=== PATIENT | female | born 1975 | race Caucasian/White ===

== ENCOUNTER 2024-06-11 10:45 | Outpatient (REF) | payer SELFPAY ==
[2024-06-11 14:25] LABS: Basophils Absolute Auto 0.1 10^3/uL (0.0-0.1); Basophils Percent Auto 0.9 % (0.2-2.0); Eosinophils Absolute Auto 0.1 10^3/uL (0.0-0.7); Eosinophils Percent Auto 1.9 % (0.9-7.0); Hematocrit 38.4 % (36.0-48.0); Hemoglobin 11.5 g/dL (12.0-16.0); Immature Granulocytes Abs Auto 0.02 10^3/uL (0.00-0.03); Immature Granulocytes Pct Auto 0.3 % (0.0-0.5); Lymphocytes Absolute Auto 1.6 10^3/uL (1.2-3.8); Lymphocytes Percent Auto 24.8 % (20.5-60.0); Mean Corpuscular HGB Conc 29.9 g/dL (29.9-35.2); Mean Corpuscular Hemoglobin 27.3 pg (26.7-34.0); Mean Corpuscular Volume 91.2 fL (81.0-99.0); Mean Platelet Volume 11.6 fL (9.5-13.5); Monocytes Absolute Auto 0.5 10^3/uL (0.3-0.8); Monocytes Percent Auto 8.1 % (1.7-12.0); Neutrophils Absolute Auto 4.1 10^3/uL (1.4-6.5); Platelet Count 378 10^3/uL (150-450); Red Blood Count 4.21 10^6/uL (4.20-5.40); Red Cell Distribution Width 13.9 % (11.0-15.0); White Blood Count 6.5 10^3/uL (4.0-11.0)
[2024-06-11 14:31] LABS: Alanine Aminotransferase 16 U/L (14-59); Albumin Globulin Ratio 0.8; Alkaline Phosphatase 61 U/L (46-116); Anion Gap 14.4; Aspartate Amino Transferase 22 U/L (15-37); BUN Creatinine Ratio 34.6; Bilirubin Total 0.1 mg/dL (0.2-1.0); C Reactive Protein <0.50 mg/dL (<=0.50); Calcium 6.4 mg/dL (8.5-10.1); Carbon Dioxide 20.3 mmol/L (21.0-32.0); Chloride 116 mmol/L (98-107); Estimated GFR (African America >60 (>=60); Estimated GFR (Non-African Ame >60 (>=60); Globulin 2.6 g/dL; Glucose 54 mg/dL (74-106); Sodium 148 mmol/L (136-145); Total Protein 4.6 g/dL (6.4-8.2)
[2024-06-11 15:37] LABS: Potassium 2.7 mmol/L (3.5-5.1)
[2024-06-11 16:02] LABS: Erythrocyte Sedimentation Rate 102 mm/hr (<=30)
== END 2024-06-11 10:46 | disposition home or self-care (01) ==
LOC: LAB 10:45
PROVIDERS: PCP Internal Medicine
DX: T84.52XA Infection and inflammatory reaction due to internal left hip prosthesis, initial encounter (principal); Z79.899 Other long term (current) drug therapy
CPT/HCPCS: 36415; 80053; 85025; 85652; 86140

== ENCOUNTER 2024-06-13 15:14 | Outpatient (REF) | payer SELFPAY ==
[2024-06-13 16:05] LABS: Potassium 4.5 mmol/L (3.5-5.1)
== END 2024-06-13 15:15 | disposition home or self-care (01) ==
LOC: LAB 15:14
PROVIDERS: PCP Internal Medicine
DX: E87.6 Hypokalemia (principal)
CPT/HCPCS: 36415; 84132

== ENCOUNTER 2024-06-18 11:34 | Outpatient (REF) | payer SELFPAY ==
[2024-06-18 12:07] LABS: Basophils Percent Auto 0.9 % (0.2-2.0); Eosinophils Absolute Auto 0.1 10^3/uL (0.0-0.7); Eosinophils Percent Auto 2.1 % (0.9-7.0); Hematocrit 27.4 % (36.0-48.0); Hemoglobin 8.3 g/dL (12.0-16.0); Lymphocytes Absolute Auto 0.8 10^3/uL (1.2-3.8); Lymphocytes Percent Auto 22.9 % (20.5-60.0); Mean Corpuscular HGB Conc 30.3 g/dL (29.9-35.2); Mean Corpuscular Hemoglobin 27.8 pg (26.7-34.0); Mean Corpuscular Volume 91.6 fL (81.0-99.0); Mean Platelet Volume 11.1 fL (9.5-13.5); Monocytes Absolute Auto 0.4 10^3/uL (0.3-0.8); Neutrophils Absolute Auto 2.1 10^3/uL (1.4-6.5); Neutrophils Percent Auto 63.1 % (43.0-75.0); Platelet Count 251 10^3/uL (150-450); Red Blood Count 2.99 10^6/uL (4.20-5.40); Red Cell Distribution Width 13.6 % (11.0-15.0); White Blood Count 3.3 10^3/uL (4.0-11.0)
[2024-06-18 12:36] LABS: Alanine Aminotransferase 28 U/L (14-59); Albumin Globulin Ratio 0.8; Albumin Level 3.1 g/dL (3.4-5.0); Alkaline Phosphatase 95 U/L (46-116); Aspartate Amino Transferase 28 U/L (15-37); BUN Creatinine Ratio 22.4; Bilirubin Total 0.2 mg/dL (0.2-1.0); C Reactive Protein 0.85 mg/dL (<=0.50); Calcium 9.5 mg/dL (8.5-10.1); Chloride 103 mmol/L (98-107); Estimated GFR (African America >60 (>=60); Estimated GFR (Non-African Ame >60 (>=60); Glucose 94 mg/dL (74-106); Sodium 138 mmol/L (136-145); Total Protein 7.1 g/dL (6.4-8.2)
[2024-06-18 12:56] LABS: Erythrocyte Sedimentation Rate 10 mm/hr (<=30)
== END 2024-06-18 11:35 | disposition home or self-care (01) ==
LOC: LAB 11:34
PROVIDERS: PCP Internal Medicine
DX: T84.52XA Infection and inflammatory reaction due to internal left hip prosthesis, initial encounter (principal); Z79.2 Long term (current) use of antibiotics
CPT/HCPCS: 36415; 80053; 85025; 85652; 86140

== ENCOUNTER 2024-07-02 11:52 | Outpatient (REF) | payer OTHER, SELFPAY ==
[2024-07-02 12:09] LABS: Basophils Absolute Auto 0.1 10^3/uL (0.0-0.1); Basophils Percent Auto 1.2 % (0.2-2.0); Eosinophils Absolute Auto 0.1 10^3/uL (0.0-0.7); Eosinophils Percent Auto 2.2 % (0.9-7.0); Hematocrit 39.5 % (36.0-48.0); Hemoglobin 12.2 g/dL (12.0-16.0); Immature Granulocytes Abs Auto 0.01 10^3/uL (0.00-0.03); Immature Granulocytes Pct Auto 0.2 % (0.0-0.5); Lymphocytes Absolute Auto 1.3 10^3/uL (1.2-3.8); Lymphocytes Percent Auto 21.9 % (20.5-60.0); Mean Corpuscular HGB Conc 30.9 g/dL (29.9-35.2); Mean Corpuscular Hemoglobin 27.2 pg (26.7-34.0); Mean Corpuscular Volume 88.2 fL (81.0-99.0); Monocytes Absolute Auto 0.4 10^3/uL (0.3-0.8); Monocytes Percent Auto 7.1 % (1.7-12.0); Neutrophils Absolute Auto 3.9 10^3/uL (1.4-6.5); Neutrophils Percent Auto 67.4 % (43.0-75.0); Platelet Count 387 10^3/uL (150-450); Red Blood Count 4.48 10^6/uL (4.20-5.40); Red Cell Distribution Width 13.4 % (11.0-15.0); White Blood Count 5.8 10^3/uL (4.0-11.0)
--- OUTSIDE RECORDS SUMMARY | 2024-07-02 12:10 | XMS_ITS | CCD ---
Author Organization [facility] CliniSynd Care Team Providers Care Motor Winder Name Role Phone KODAK, DR RAMOS Admitting Unavailable HIESTAND, DR TREE Aguilar Primary Care Unavailable KODAK, DR RAMOS Attending Unavailable KODAK, DR RAMOS Admitting Unavailable HIESTAND, DR TREE Aguilar Primary Care Unavailable KODAK, DR RAMOS Attending Unavailable KODAK, DR RAMOS Consulting Unavailable DERRICK CANNON Consulting Unavailable BOUCHRA GRACE Consulting Unavailable KODAK, DR RAMOS Admitting Unavailable KODAK, DR RAMOS Attending Unavailable KODAK, DR RAMOS Consulting Unavailable Paul Mcgregor Consulting Unavailable KODAK, DR RAMOS Admitting Unavailable HIESTAND, DR TREE Aguilar Primary Care Unavailable KODAK, DR RAMOS Attending Unavailable KODAK, DR RAMOS Consulting Unavailable Chapis Saldana Unavailable Tay Tucker Unavailable NON STAFF Primary Care Unavailable Tay Tucker Attending Unavailable Tay Tucker Admitting Unavailable Tree Jaime MD Primary Care Provider Tree Jaime MD Primary Care Provider MICHAELA MA Attending Unavailable TREE JAIME Referring Unavailable TREE JAIME Attending Unavailable TREE JAIME Referring Unavailable TREE JAIME Primary Care Unavailable TREE JAIME Attending Unavailable TREE JAIME Referring Unavailable TREE JAIME Primary Care Unavailable TREE JAIME Attending Unavailable TREE JAIME Referring Unavailable TREE JAIME Primary Care Unavailable ANGUS BROOKE Referring Unavailable YONI VILLELA Referring Unavailable TREE JAIME Primary Care Unavailable YONI VILLELA Referring Unavailable TREE JAIME Primary Care Unavailable TREE JAIME Attending Unavailable TREE JAIME Referring Unavailable TREE JAIME J Primary Care Unavailable YONI VILLELA Referring Unavailable OSWALDOMIRA, TREE Aguilar Primary Care Unavailable ANGUS BROOKE Referring Unavailab le TREE JAIME Primary Care Unavailable YONI VILLELA Referring Unavailable OSWALDOMIRA, TREE Aguilar Primary Care Unavailable OSWALDOTREE MEYERS Attending Unavailable ADDISON, TREE Aguilar Referring Unavailable PASESARMIRA, TREE Aguilar Primary Care Unavailable Unavailable, Physician Primary Care Unavailab Angus Cohen MD Attending Unavailable Unavailable, Physician Primary Care Unavailab Angus Cohen MD Admitting Unavailable Angus Brooke MD Attending Unavailable Angus Brooke MD Attending Unavailable Unavailable, Physician Primary Care UnavailAngus Felix MD Attending Unavailable Unavailable, Physician Primary Care UnavailAngus Felix MD Attending Unavailable Unavailable, Physician Primary Care Unavailab le Unavailable, Physician Primary Care Unavailab Angus Cohen MD Attending Unavailable Medications Current Medications Medication Drug Class(es) Dates Sig (Normalized) Sig (Original) 0.5 ML tirzepatide 5 MG/ML Auto-Injector [Mounjaro] (1 source) Start: 08-09-2022 Mounjaro 2.5 MG/0.5ML as directed Subcutaneous weekly for 28 days Jul, Active acetaminophen 325 mg / HYDROcodone bitartrate 5 mg oral tablet (2 sources) Opioid Agonist Start: 12-13-2023 take 1 tablet by mouth every eight hours for pain HYDROcodone-aceta minophen (NORCO) 5-325 mg per tablet take 1 tablet by mouth every 8 hours for 7 days if needed for pain 0 12/13/2023 Active calcium carbonate 500 mg oral tablet (1 source) calcium carbonat e (Os-Carlos) 1250 (500 Ca) MG tablet Take by mouth Daily 0 Active hydroCHLOROthiazide 12.5 mg / losartan potassium 100 mg oral tablet (2 sources) Thiazide Diuretic, Angiotensin 2 Receptor Nereida take 1 tablet by mouth every twenty-four hours Losartan Potassium-HCTZ 100-12.5 MG 1 tablet Orally Once a day Active labetalol hydrochloride 100 mg oral tablet (8 sources) beta-Adrenergic Nereida Start: 08-09-2023 take 1 tablet by mouth once daily in the morning labetaloL (NORMODYNE) 100 mg tablet Indications: Primary hypertension take 1 tablet by mouth every morning and 1 tablet BEFORE BEDTIME 180 tablet 3 08/09/2023 Active Start: 08-09-2023 labetalol (Nor modyne) 100 MG tablet 2 (two) times a day 0 08/09/2023 Active Multiple Vitamin (multivitamin) tablet (1 source) take 1 tablet by mouth in the morning Multiple Vitamin (multivitamin) tablet Take 1 tablet by mouth in the morning. 0 Active omeprazole 20 mg delayed release oral capsule (1 source) Proton Pump Inhibitor Start: 09-14-20 23 omeprazole (PriLOSEC) [address] capsule 0.25 mg, 0.5 mg dose 1.5 ml semaglutide 1.34 mg/ml pen injector (4 sources) Start: 09-02-20 22 Ozempic (0.25 or 0.5 MG/DOSE) 2 MG/1.5ML 0.25 mg for 4 weeks and then increase to 0.5 mg Subcutaneous Weekly for 28 days Aug, Active Ozempic (0.25 or 0.5 MG/DOSE) 2 MG/1.5ML 0.5 mg Subcutaneous Weekly for 28 days Active tiZANidine 4 mg oral tablet (2 sources) Central alpha-2 Adrenergic Agonist Start: 11-24-2023 take 1 tablet by mouth every eight hours tiZANidine (ZANAFLEX) 4 mg tablet take 1 tablet by mouth every 8 hours 0 11/24/2023 Active Wegovy (1 source) Wegovy Active Completed/Discontinued Medications Medication Drug Class(es) Dates Sig (Normalized) Sig (Original) cyclobenzaprine hydrochloride 5 mg oral tablet (5 sources) Muscle Relaxant Start: 10-21-2023 End: 11-02-2023 take 1 tablet by mouth every eight hours as needed for muscle spasms cyclobenzaprine (FLEXERIL) 5 mg tablet Indications: Sciatica of left side Take 1 tablet (5 mg total) by mouth every 8 (eight) hours as needed for muscle spasms. 15 tablet 0 10/21/2023 11/02/2023 Discontinued Start: 04-05-2023 End: 10-21-2023 take 1 tablet by mouth every eight hours as needed for muscle spasms cyclobenzaprine (FLEXERIL) 10 mg tablet Indications: Strain of neck muscle, initial encounter Take 1 tablet (10 mg total) by mouth every 8 (eight) hours as needed for muscle spasms. 15 tablet 0 04/05/2023 10/21/2023 Discontinued gabapentin 100 mg oral capsule (4 sources) Anti-epileptic Agent Start: 10-21-2023 End: 11-02-2023 take 1 capsule by mouth three times daily gabapentin (NEURONTIN) 100 mg capsule Indications: Sciatica of left side Take 1 capsule (100 mg total) by mouth 3 (three) times a day. 21 capsule 0 10/21/2023 11/02/2023 Discontinued losartan potassium 100 mg oral tablet (2 sources) Angiotensin 2 Receptor Nereida Start: 08-09-2023 End: 10-21-2023 take 1 tablet by mouth once daily in the morning losartan (COZAAR) 100 mg tablet Indications: Primary hypertension take 1 tablet by mouth every morning 90 tablet 3 08/09/2023 10/21/2023 Discontinued (Therapy completed) Losartan Potassi um Active Naproxen (6 sources) Nonsteroidal Anti-inflammatory Drug End: 10-21-2023 naproxen sodium (ALEVE ORAL) Take by mouth. 0 10/21/2023 Discontinued (Therapy completed) take 4 tablets by mo [facility] every twenty-four hours Aleve 220 MG 4 tablets Orally daily Active traMADol hydrochloride 50 mg oral tablet (3 sources) Opioid Agonist Start: 11-02-2023 End: 12-19-2023 take 1 tablet by mouth every six hours as needed for pain traMADoL (ULTRAM) 50 mg tablet Indications: Primary osteoarthritis of left hip Take 1 tablet (50 mg total) by mouth every 6 (six) hours as needed for pain. 20 tablet 0 11/02/2023 12/19/2023 Discontinued (Therapy completed) Problems Active Problems Problem Classification Problem Date Documented Da te Episodic/Chronic Complication of device; implant or graft (3 sources) Infection and inflammatory reaction due to internal left hip prosthesis, initial encounter; Translations: [Infection and inflammatory reaction due to internal left hip prosthesis, initial encounter] Onset: Episodic Disorders of lipid metabolism (7 sources) Hypercholesterolemia; Translations: [Pure hypercholesterolemia, unspecified] Chronic Esophageal disorders (7 sources) Gastroesophageal reflux disease; Translations: [Gastro-esophageal reflux disease without esophagitis] Chronic Essential hypertension (14 sources) Hypertensive disorder; Translations: [Essential (primary) hypertension] Onset: 2 Chronic Menstrual disorders (6 sources) Excessive and frequent menstruation with regular cycle; Translations: [Dysmenorrhea, unspecified] Onset: 1 Chronic Osteoarthritis (3 sources) Osteoarthritis of left hip joint; Translations: [Unilateral primary osteoarthritis, left hip] 10-31-2023 Chronic Other female genital disorders (4 sources) Abnormal uterine and vaginal bleeding, unspecified; Translations: [ABNORMAL UTERINE VAGINAL BLEED UNS] Onset: 1 Chronic Other female genital disorders (1 source) Polyp of corpus uteri; Translations: [POLYP OF CORPUS UTERI] Onset: 1 Episodic Other gastrointestinal disorders (1 source) History of bariatric surgical procedure; Translations: [Bariatric surgery status] 11-01-2023 Episodic Other lower respiratory disease (2 sources) Snoring Episodic Other nutritional; endocrine; and metabolic disorders (1 source) Morbid (severe) obesity due to excess calories; Translations: [MORBID SEVERE OBES D/T EXCESS CARLOS] Onset: 1 Chronic Other nutritional; endocrine; and metabolic disorders (2 sources) Body mass index (BMI) 50.0-59.9, adult; Translations: [BODY MASS INDEX BMI 50.0-59.9 ADULT] Onset: 1 Chronic Other nutritional; endocrine; and metabolic disorders (2 sources) Obesity; Translations: [Obesity, unspecified] Chronic Other nutritional; endocrine; and metabolic disorders (4 sources) Body mass index 40+ - severely obese; Translations: [Body mass index (BMI) 50.0-59.9, adult] Chronic Other nutritional; endocrine; and metabolic disorders (2 sources) Morbid obesity; Translations: [Body mass index (BMI) 60.0-69.9, adult] Chronic Other nutritional; endocrine; and metabolic disorders (1 source) Obesity, unspecified Chronic Other nutritional; endocrine; and metabolic disorders (1 source) Body mass index (BMI) 60.0-69.9, adult Chronic Other nutritional; endocrine; and metabolic disorders (7 sources) Severe obesity; Translations: [Morbid (severe) obesity due to excess calories] Onset: 2 08-17-2022 Chronic Other nutritional; endocrine; and metabolic disorders (1 source) Abnormal weight gain Episodic Unclassified (1 source) CONTACT W/AND (SUSP) EXPOS COVID-19; Translations: [CONTACT W/AND (SUSP) EXPOS COVID-19] Onset: 1 Unclassified (1 source) Dietary counseling and surveillance; Translations: [Dietary counseling and surveillance] Onset: 3 Unclassified (1 source) pre-op Onset: 4 Past or Other Problems Problem Classification Problem Date Documented Da te Episodic/Chronic Mood disorders (7 sources) Mood disorders Onset: 05-21-2021 05-21-2021 Other connective tissue disease (1 source) Pain in lower limb Onset: 10-21-2023 Episodic Other non-traumatic joint disorders (4 sources) Hip pain; Translations: [Pain in left hip] Onset: 12-19-2023 10-27-2023 Episodic Other non-traumatic joint disorders (1 source) Pain in left hip; Translations: [Pain in left hip] Onset: 10-27-2023 Episodic Spondylosis; intervertebral disc disorders; other back problems (4 sources) Sciatica; Translations: [Sciatica, left side] Onset: 10-21-2023 10-21-2023 Episodic Results Test Name Value Interpretation Reference Range Tyra de la fuente Infectious Disease Office/ jacki Noteon 06-28-2024 Infectious Disease Office/Clinic Note Assessment/Plan 1. Left hip prosthetic joint infection Sed rate still moderately elevated but CRP is coming down and staying down the last couple weeks. Stop date on the ceftriaxone 6 weeks will be July 12. Recheck in 2 weeks. Chief Complaint 2wk f/u Lft hip prosthetic joint infection History of Present Illness Seen in follow-up of left hip prosthetic joint infection with Proteus and Hawa also grown. Started on ceftriaxone on 05/31/2024 [1] Overall doing better. Wound VAC was taken off. She has collagen dressing with Mepilex border being changed every 3 to 4 days. Drainage is minimal. She is able to walk on the hip without pain. No fever or chills. Right arm PICC line okay. No loose stools. Appetites okay. She is using the interweaving the skin folds has helped keeping the area dry and not inflamed. Review of Systems No other focal complaints. No diarrhea. Energy levels overall better. Physical Exam Vitals & Measurements T: 36.4 ?C (Temporal Artery) HR: 83 (Peripheral) BP: 124/84 SpO2: 99 HT: 164 cm WT: 107.4 kg WT: 107.4 kg (Dosing) BMI: 39.93 Vital signs are okay. Right arm PICC line site okay. Left hip wound with Mepilex in place. No surrounding erythema. No swelling or firmness. Uses cane to get around. Additional Vitals BP Position/Location: Sitting, Left arm Medical Decision Making Chronic conditions NOT treated during this visit that affected my overall medical decision making: [] Treatment plans discussed but not opted for at this time: [] Prescribed medication that requires intensive monitoring for toxicity: [] I have reviewed the patient?s medication list for medication interactions/contrain dications and/or for upcoming procedures: [yes or no] Time Spent with the Patient I have personally spent [] minutes on this date, directly related to today's patient visit, including pre and post visit work, for this date of service. Time listed does not include time spent on separately billable services. 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 Obesity Historical No qualifying data Procedure/Surgical History Caesarean Section Caesarean Section (01/23/1993) Right Rotator Cuff Repair (11/14/2021) Bariatric Surgery Brooke-en-Y (09/13/2023) Total replacement of left hip joint (04/19/2024) I&D left hip wound and wound VAC placement (05/17/2024) Medications biotin, 5000 mg, Oral, Daily Calcium Chews, Oral, BID cefTRIAXone 2 g injection, 2 g, IV, Daily Multi Vitamin w/Iron, 1 caps, Oral, Daily Potassium Chloride (Eqv-K-Tab) 20 mEq oral tablet, extended release, 20 mEq= 1 tabs, Oral, BID, take 1 po qid x 1 day do not crush or chew thiamine, 1 caps, Oral, Daily Allergies No Known Allergies Social History Alcohol Current, 1-2 times per year Substance Abuse Denies All Tobacco Former smoker, quit more than 5 years ago Use:. Family History Diabetes mellitus: Mother and Father. Hypertension: Mother and Father. Health Status Family Member(s) Immunizations Vaccine Date Status SARS-CoV-2 (COVID-19) mRNA BNT-162b2 vax 08/24/2021 Recorded SARS-CoV-2 (COVID-19) mRNA BNT-162b2 vax 01/17/2021 Recorded SARS-CoV-2 (COVID-19) mRNA BNT-162b2 vax 12/26/2020 Recorded tetanus/diphtheria/pe rtussis, acel(Tdap) 05/15/2014 Recorded Lab Results Laboratory studies of June 18 and June 25 reviewed. CRP was down to essentially normal limits of 0.8. Test were done at different labs each week. Sed rate was 10 on the at [place] 77 on the at [place]. CBC and liver and kidney numbers looked okay both weeks. [1] Infectious Disease Office Visit Note; Edwardo DESHPANDE, Angus Lucas 06/14/2024 15:31 EDT Electronically signed by Angus Brooke MD 06/28/24 15:02 EDT Normal [facility] Provider Letteron 06-28-2024 Provider Letter Yoni Villela M.D. [address] [place] [address] [address] [place] [address] Re: Rain Pollard Date of Visit: 06/28/[address] Villela, Thank you for your referral to my office. Attached you will find the most recent office visit note. Please call if you have any questions or concerns. Sincerely, Angus Brooke MD [address] [facility], [address] [place] [address] The following document(s) were included in the letter: June 28, 2024 14:58:30 EDT - (06/28/2024) Infectious Disease Office Visit Note Normal [facility] CBC AND AUTO DIFFon 06-25-20 ABSOLUTE BASOPHIL 0.1 X10E9/L Normal 0.0-0.2 [facility] Comment on above: Performed By: #### Melissa BCA, CMP, 1990-01 #### [facility] ([id number]) [address] [place] [address] #### [id number] #### [facility] ([id number]) [address] [place] [address] ABSOLUTE NEUTROPHIL 4.0 X10E9/L Normal 1.5-6.6 [facility] Comment on above: Performed By: #### C BCA, CMP, 1990-01 #### [facility] ([id number]) [address] [place] [address] #### [id number] #### [facility] ([id number]) [address] [place] [address] Basophils/100 WBC (Bld) 1.1 % Normal [facility] Comment on above: Performed By: #### Melissa BCA, CMP, 1990-01 #### [facility] ([id number]) [address] [place] [address] #### [id number] #### [facility] ([id number]) [address] [place] [address] Eosinophils (Bld) [#/Vol] 0.1 10*3/uL Normal 0.0-0.4 [facility] Comment on above: Performed By: #### Melissa BCA, CMP, 1990-01 #### [facility] ([id number]) [address] [place] [address] 97262 #### [id number] #### [facility] ([id number]) [address], [address] [place] [address] Eosinophils/100 WBC (Bld) 2.2 % Normal [facility] Comment on above: Performed By: #### Melissa TRINIDAD CMP, 1990-01 #### [facility] ([id number]) [address] [place] [address] #### [id number] #### [facility] ([id number]) [address] [facility], [address] [place] [address] Erythrocyte distribution width (RBC) [Ratio] 14.4 % Normal 11.5-15.0 [facility] Comment on above: Performed By: #### Melissa TRINIDAD [facility], 1990-01 #### [facility] ([id number]) [address] [place] [address] 76223 #### [id number] #### [facility] ([id number]) [address] [facility], [address] [place] [address] Hematocrit (Bld) [Volume fraction] 38.2 % Normal 35-47 [facility] Comment on above: Performed By: #### Melissa TRINIDAD CMP, 1990-01 #### [facility] ([id number]) [address] [place] [address]204 #### [id number] #### [facility] ([id number]) [address] [facility], [address] [place] [address] Hemoglobin (Bld) [Mass/Vol] 12.3 g/dL Normal 11.7-15.5 [facility] Comment on above: Performed By: #### Melissa TRINIDAD CMP, 1990-01 #### [facility] ([id number]) [address] [place] [address] 70328 #### [id number] #### [facility] ([id number]) [address] [place] [address] Lymphocytes (Bld) [#/Vol] 1.5 10*3/uL Normal 1.0-3.5 [facility] Comment on above: Performed By: #### Melissa TRINIDAD CMP, 1990-01 #### [facility] ([id number]) [address] [place] [address] #### [id number] #### [facility] ([id number]) [address] [place] [address] Lymphocytes/100 WBC (Bld) 22.9 % Normal [facility] Comment on above: Performed By: #### Melissa TRINIDAD CMP, 1990-01 #### [facility] ([id number]) [address] [place] [address] 17730 #### [id number] #### [facility] ([id number]) [address] [facility], [address] [place] [address] MCH (RBC) [Entitic mass] 27.1 pg Normal 27-34 [facility] Comment on above: Performed By: #### Melissa TRINIDAD CMP, 1990-01 #### [facility] ([id number]) [address] [place] [address] 65940 #### [id number] #### [facility] ([id number]) [address] [facility], [address] [place] [address] MCHC (RBC) [Mass/Vol] 32.2 g/dL Normal 32-36 [facility] Comment on above: Performed By: #### Melissa TRINIDAD CMP, 1990-01 #### [facility] ([id number]) [address] [place] [address] 04055 #### [id number] #### [facility] ([id number]) [address] [place] [address] MCV (RBC) [Entitic vol] 84 fL Normal 80-100 [facility] Comment on above: Performed By: #### Melissa TRINIDAD CMP, 1990-01 #### [facility] ([id number]) [address] [place] [address] 38290 #### [id number] #### [facility] ([id number]) [address] [facility], [address] [place] [address] Monocytes (Bld) [#/Vol] 0.7 10*3/uL Normal 0-0.9 [facility] Comment on above: Performed By: #### Melissa TRINIDAD CMP, 1990-01 #### [facility] ([id number]) [address] [place] [address] 42584 #### [id number] #### [facility] ([id number]) [address] [facility], [address] [place] [address] Monocytes/100 WBC (Bld) 11.6 % Normal [facility] Comment on above: Performed By: #### Melissa TRINIDAD CMP, 1990-01 #### [facility] ([id number]) [address] [place] [address] 89324 #### [id number] #### [facility] ([id number]) [address] [facility], [address] [place] [address] Neutrophils/100 WBC (Bld) 62.2 % Normal [facility] Comment on above: Performed By: #### Melissa TRINIDAD CMP, 1990-01 #### [facility] ([id number]) [address] [place] [address] 95110 #### [id number] #### [facility] ([id number]) [address] [place] [address] Platelet mean volume (Bld) [Entitic vol] 9.0 fL Normal 7-12 [facility] Comment on above: Performed By: #### Melissa TRINIDAD CMP, 1990-01 #### [facility] ([id number]) [address] [place] [address] 69254 #### [id number] #### [facility] ([id number]) [address] [facility] [place] [address] Platelets (Bld) [#/Vol] 431 10*3/uL Normal 150-450 [facility] Comment on above: Performed By: #### Melissa TRINIDAD CMP, 1990-01 #### [facility] ([id number]) [address] [place] [address] 33787 #### [id number] #### [facility] ([id number]) [address] [facility], [address] [place] [address] RBC COUNT 4.53 X10E12/L Normal 3.80-5.20 [facility] Comment on above: Performed By: #### Melissa TRINIDAD CMP, 1990-01 #### [facility] ([id number]) [address] [place] [address] 61386 #### [id number] #### [facility] ([id number]) [address] [facility], [address] [place] [address] WBC (Bld) [#/Vol] 6.4 10*3/uL Normal 4.0-11.0 [facility] Comment on above: Performed By: #### Melissa TRINIDAD CMP, 1990-01 #### [facility] ([id number]) [address] [place] [address] 71863 #### [id number] #### [facility] ([id number]) [address] [facility], [address] [place] [address] COMPREHENSIVE METABOLIC PANE Jaxson 06-25-2024 Albumin [Mass/Vol] 3.5 g/dL Normal 3.2-5.3 [facility] Comment on above: Performed By: #### Melissa TRINIDAD CMP, 1990-01 #### [facility] ([id number]) [address] [place] [address] 68349 #### [id number] #### [facility] ([id number]) [address] [place] [address] ALP [Catalytic activity/Vol] 89 U/L Normal 39-130 [facility] Comment on above: Performed By: #### Melissa TRINIDAD CMP, 1990-01 #### [facility] ([id number]) [address] [place] [address] 00764 #### [id number] #### [facility] ([id number]) [address] [place] [address] ALT [Catalytic activity/Vol] 25 U/L Normal 0-31 [facility] Comment on above: Performed By: #### Melissa TRINIDAD CMP, 1990-01 #### [facility] ([id number]) [address] [place] [address] 52852 #### [id number] #### [facility] ([id number]) [address] [place] [address] Anion gap [Moles/Vol] 8 mmol/L Normal 5-15 [facility] Comment on above: Performed By: #### Melissa TRINIDAD CMP, 1990-01 #### [facility] ([id number]) [address] [place] [address] 13513 #### [id number] #### [facility] ([id number]) [address] [place] [address] AST [Catalytic activity/Vol] 27 U/L Normal 0-41 [facility] Comment on above: Performed By: #### Melissa TRINIDAD CMP, 1990-01 #### [facility] ([id number]) [address] [place] [address] 55334 #### [id number] #### [facility] [facility] ([id number]) [address], [address] [place] [address] Bilirubin [Mass/Vol] 0.3 mg/dL Normal 0.3-1.2 [facility] Comment on above: Performed By: #### Melissa [facility]IN[facility]AD [facility], 1990-01 #### [facility] ([id number]) [address] [place] [address] #### [id number] #### [facility] ([id number]) [address], [address] [place] [address] Calcium [Mass/Vol] 9.0 mg/dL Normal 8.5-10.5 [facility] Comment on above: Performed By: #### Melissa [facility], 1990-01 #### [facility] ([id number]) [address] [place] [address] #### [id number] #### [facility] ([id number]) [address], [address] [place] [address] Chloride [Moles/Vol] 104 mmol/L Normal 98-109 [facility] Comment on above: Performed By: #### Melissa [facility], 1990-01 #### [facility] ([id number]) [address] [place] [address] #### [id number] #### [facility] ([id number]) [address], [address] [place] [address] CO2 [Moles/Vol] 26 mmol/L Normal 22-32 [facility] Comment on above: Performed By: #### Melissa [facility], 1990-01 #### [facility] ([id number]) [address] [place] [address] #### [id number] #### [facility] ([id number]) [address], [address] [place] [address] Creatinine [Mass/Vol] 0.42 mg/dL Normal 0.40-1.00 [facility] Comment on above: Result Comment: METH OD TRACEABLE TO IDMS STANDARD Performed By: #### C FOSTER TRINIDAD, 1990-01 #### [facility] ([id number]) [address] [place] [address] 58396 #### [id number] #### [facility] ([id number]) [address] [place] [address] eGFR (CKD-EPI) NON-RACE DEPENDENT >90 Normal >59 [facility] Comment on above: Result Comment: Reported eGFR is based on the CKD-EPI 2020 equation that does not use a race coefficient. Performed By: #### Melissa TRINIDAD [facility]MP, 1990-01 #### [facility] ([id number]) [address] [place] [address] #### [id number] #### [facility] ([id number]) [address], [address] [place] [address] Glucose [Mass/Vol] 76 mg/dL Normal 65-99 [facility] Comment on above: Performed By: #### Melissa TRINIDAD CMP, 1990-01 #### [facility] ([id number]) [address] [place] [address] 26801 #### [id number] #### [facility] ([id number]) [address] [place] [address] Potassium [Moles/Vol] 3.9 mmol/L Normal 3.5-5.0 [facility] Comment on above: Performed By: #### Melissa TRINIDAD CMP, 1990-01 #### [facility] ([id number]) [address] [place] [address] 37207 #### [id number] #### [facility] ([id number]) [address] [place] [address] Protein [Mass/Vol] 7.2 g/dL Normal 6.0-8.0 [facility] Comment on above: Performed By: #### C AMOS, CMP, 1990-01 #### [facility] ([id number]) [address] [place] [address] 30668 #### [id number] #### [facility] ([id number]) [address] [place] [address] Sodium [Moles/Vol] 138 mmol/L Normal 134-146 [facility] Comment on above: Performed By: #### C BCA, CMP, 1990-01 #### [facility] ([id number]) [address] [place] [address] 23919 #### [id number] #### [facility] ([id number]) [address] [place] [address] Urea nitrogen [Mass/Vol] 16 mg/dL Normal 5-23 [facility] Comment on above: Performed By: #### C AMOS, CMP, 1990-01 #### [facility] ([id number]) [address] [place] [address] 78313 #### [phone] #### [facility] ([id number]) [address] [place] [address] CRP [Mass/Vol]on 06-25-2024 C REACTIVE PROTEIN 0.8 mg/dL High 0.000-0.744 [facility] Comment on above: Performed By: #### C BCA, CMP, 1990-01 #### [facility] ([id number]) [address] [place] [address]303 #### [id number] #### [facility] ([id number]) [address], [address] [place] [address] ESR Photometric method (Bld) [Velocity]on 06-25-2024 ESR, ERYTHROCYTE SEDIMENTATION RATE 77 mm/h High 0-30 [facility] Comment on above: Performed By: #### C AMOS, [facility], 1989- #### [facility] ([id number]) [address] [facility], [place] [address] #### [id number] #### [facility] ([id number]) [address] [facility] [place] [address] Infectious Disease Office/Cl inic Noteon 06-14-2024 Infectious Disease Office/Clinic Note Assessment/Plan 1. Left hip prosthetic joint infection Continue ceftriaxone for 4 more weeks. Increase in sed rate somewhat concerning but we will see the trend next week. Will also track down the CRP from this week. In the absence of any change in physical status and isolated lab number such as a sed rate is not significant at this point. 2. Hypokalemia On replacement potassium. Blood will be rechecked on the . Starting the we will cut back down to 20 meq 1 capsule a day. Chief Complaint 2wk f/u Prosthetic hip joint infection History of Present Illness Seen in follow-up of left hip prosthetic joint infection with Proteus and Hawa also grown. Started on ceftriaxone on 05/31/2024. Overall doing okay. Still has a wound VAC on. No pain. Uses cane for support. Hopes to get the wound VAC off this week or early next week. No fever or chills. Appetites okay. No diarrhea. She is done with fluconazole for the intertrigo. She is having Medihoney also applied to the skin fold areas and getting better. This weeks labs came in with low potassium of 2.7. Given 60 mill equivalents of oral potassium on the and rechecked yesterday came back within normal limits. Review of Systems No other focal complaints. Physical Exam Vitals & Measurements T: 36.5 ?C (Temporal Artery) HR: 85 (Peripheral) BP: 128/80 SpO2: 96 HT: 164 cm WT: 104.77 kg WT: 104.77 kg (Dosing) BMI: 38.95 Vital signs are okay. Right arm PICC line site okay with some blood on the medicated patch. Overall no erythema or induration. Left hip with incisional wound VAC in place. Additional Vitals BP Position/Location: Sitting, Left arm Medical Decision Making Chronic conditions NOT treated during this visit that affected my overall medical decision making: [] Treatment plans discussed but not opted for at this time: [] Prescribed medication that requires intensive monitoring for toxicity: [] I have reviewed the patient?s medication list for medication interactions/contrain dications and/or for upcoming procedures: [yes or no] Time Spent with the Patient I have personally spent [] minutes on this date, directly related to today's patient visit, including pre and post visit work, for this date of service. Time listed does not include time spent on separately billable services. Problem List/Past Medical History Ongoing Hypertension MRSA carrier Obesity Historical No qualifying data Procedure/Surgical History Caesarean Section Caesarean Section (01/23/1993) Right Rotator Cuff Repair (11/14/2021) Bariatric Surgery Brooke-en-Y (09/13/2023) Total replacement of left hip joint (04/19/2024) I&D left hip wound and wound VAC placement (05/17/2024) Medications biotin, 5000 mg, Oral, Daily Calcium Chews, Oral, BID cefTRIAXone 2 g injection, 2 g, IV, Daily Multi Vitamin w/Iron, 1 caps, Oral, Daily Potassium Chloride (Eqv-K-Tab) 20 mEq oral tablet, extended release, 20 mEq= 1 tabs, Oral, BID, take 1 po qid x 1 day do not crush or chew thiamine, 1 caps, Oral, Daily Allergies No Known Allergies Social History Alcohol Current, 1-2 times per year Substance Abuse Denies All Tobacco Former smoker, quit more than 5 years ago Use:. Family History Diabetes mellitus: Mother and Father. Hypertension: Mother and Father. Health Status Family Member(s) Immunizations Vaccine Date Status SARS-CoV-2 (COVID-19) mRNA BNT-162b2 vax 08/24/2021 Recorded SARS-CoV-2 (COVID-19) mRNA BNT-162b2 vax 01/17/2021 Recorded SARS-CoV-2 (COVID-19) mRNA BNT-162b2 vax 12/26/2020 Recorded tetanus/diphtheria/pe rtussis, acel(Tdap) 05/15/2014 Recorded Lab Results Labs of 06/04 and 06/11 reviewed. Sed rate did trend up this week. CRP was almost last week but not done this week. Potassium as noted was 2.7 on the . June 13 lab showed potassium up to 4.1 Electronically signed by Angus Brooke MD 06/14/24 15:39 EDT The June 11 CRP was available and was less than 0.5 with normal being less than 0.5. Electronically signed by Angus Brooke MD 06/14/24 15:46 EDT Normal [facility] Provider Letteron 06-14-2024 Provider Letter Tree Jaime M.D. [address] [place] [address] Re: aRin Pollard Date of Visit: 06/14/[address] Jaime, Thank you for your referral to my office. Attached you will find the most recent office visit note. Please call if you have any questions or concerns. Sincerely, Angus Brooke MD [address] [place] [address], [address] [place] [address] The following document(s) were included in the letter: June 14, 2024 15:31:34 EDT - (06/14/2024) Infectious Disease Office Visit Note Normal [facility] C-Reactive Proteinon 024 CRP [Mass/Vol] 5.4 mg/L High 0.0-5.[address] [facility] in Hospital Comment on above: Performed By: #### C RP, CP, SED, CBC #### [facility] [address] [place] [address] [employer] Special [employer] Associate: Paul Jones MD CBCon 06-04-2024 Erythrocyte distribution width (RBC) [Ratio] 14.1 % Normal 11.8-14.4 [facility] Comment on above: Performed By: #### C RP, CP, SED, CBC #### [address] [place], [place] [id number] Retail Special Event Associate: Paul Jones MD Hematocrit (Bld) [Volume fraction] 38.1 % Normal 36.3-47.1 [facility] Comment on above: Performed By: #### C RP, CP, SED, CBC #### [address] [place], [place] [id number] Retail [employer] Associate: Paul Jones MD Hemoglobin (Bld) [Mass/Vol] 11.7 g/dL Low 11.9-15.1 [facility] Comment on above: Performed By: #### C RP, CP, SED, CBC #### [address] [place], [place] [address] Retail Special Event Associate: Paul Jones MD MCH (RBC) [Entitic mass] 28.0 pg Normal 25.2-33.5 [facility] Comment on above: Performed By: #### C RP, CP, SED, CBC #### [address] [place] [id number] [employer] Event Associate: Paul Jones MD MCHC (RBC) [Mass/Vol] 30.7 g/dL Normal 28.4-34.8 [facility] Comment on above: Performed By: #### C RP, CP, SED, CBC #### [address] [place], [place] [id number] [employer] Associate: Paul Jones MD MCV (RBC) [Entitic vol] 91.1 fL Normal 82.6-102.9 [facility] Comment on above: Performed By: #### C RP, CP, SED, CBC #### [address] [place] [address] [employer] Event Associate: Paul Jones MD NRBC Automated 0.0 per [address] [facility] Comment on above: Performed By: #### C RP, CP, SED, CBC #### [address] [place] [phone] [employer] Associate: Paul Jones MD Platelet mean volume (Bld) [Entitic vol] 11.4 fL Normal 8.1-13.5 [facility] Comment on above: Performed By: #### C RP, CP, SED, CBC #### [address] [place] [address] [employer] Special Event Associate: Paul Jones MD Platelets (Bld) [#/Vol] 380 10*3/uL Normal 138-453 [facility] Comment on above: Performed By: #### C RP, CP, SED, CBC #### [address] [place] [phone] [employer] Associate: Paul Jones MD RBC (Bld) [#/Vol] 4.18 10*6/uL Normal 3.95-5.11 [facility] Comment on above: Performed By: #### C RP, CP, SED, CBC #### [address] [place] [address] [employer] Special Event Associate: Paul Jones MD WBC (Bld) [#/Vol] 6.4 10*3/uL Normal 3.5-11.3 [facility] Comment on above: Performed By: #### C RP, CP, SED, CBC #### [address] [place] [phone] [employer] Associate: Paul Jones MD Comp Metabolic Profon 2023 Albumin [Mass/Vol] 4.0 g/dL Normal 3.5-5.2 [facility] Comment on above: Performed By: #### C RP, CP, SED, CBC #### [facility] [address] [place], [place] [phone] [employer] Associate: Paul Jones MD Albumin/Glob Ratio 1.3 Normal 1.0-2.5 [facility] Comment on above: Performed By: #### C RP, CP, SED, CBC #### [facility] [address] [place], [place] [phone] [employer] Associate: Paul Jones MD Alkaline Phos 96 U/L Normal 35-104 [facility] Comment on above: Performed By: #### C RP, CP, SED, CBC #### [facility] [address] [place], [place] [phone] [employer] Associate: Paul Jones MD ALT [Catalytic activity/Vol] 12 U/L Normal 10-35 [facility] Comment on above: Performed By: #### C RP, CP, SED, CBC #### [facility] [address] [place], [place] [phone] [employer] Associate: Paul Jones MD Anion gap [Moles/Vol] 13 mmol/L Normal 9-16 [facility] Comment on above: Performed By: #### C RP, CP, SED, CBC #### [facility] [address] [place], [place] [phone] [employer] Associate: Paul Jones MD AST [Catalytic activity/Vol] 21 U/L Normal 10-35 [facility] Comment on above: Performed By: #### C RP, CP, SED, CBC #### [facility] [address] [place], [place] [phone] [employer] Associate: Paul Jones MD Bilirubin [Mass/Vol] mg/dL Normal 0.00-1.20 [facility] Comment on above: Performed By: #### C RP, CP, SED, CBC #### [facility] [address] [place], [place] [phone] [employer] Associate: Paul Jones MD BUN/CRE Ratio 18 Normal 9-20 [facility] Comment on above: Performed By: #### C RP, CP, SED, CBC #### [facility] [address] [place] [address] Retail Special Event Associate: Paul Jones MD Calcium [Mass/Vol] 9.7 mg/dL Normal 8.6-10.4 [facility] Comment on above: Performed By: #### C RP, CP, SED, CBC #### [facility] [address] [place] [address] Retail Special Event Associate: Paul Jones MD Chloride [Moles/Vol] 104 mmol/L Normal 98-107 [facility] Comment on above: Performed By: #### C RP, CP, SED, CBC #### [facility] [address] [place] [address] [employer] Special Event Associate: Paul Jones MD CO2 [Moles/Vol] 24 mmol/L Normal 20-31 [facility] Comment on above: Performed By: #### C RP, CP, SED, CBC #### [facility] [address] [place] [address] [employer] Special Event Associate: Paul Jones MD Creatinine [Mass/Vol] 0.6 mg/dL Normal 0.50-0.90 [facility] Comment on above: Performed By: #### C RP, CP, SED, CBC #### [facility] [address] [place] [address] [employer] Special Event Associate: Paul Jones MD GFR/1.73 sq M.predicted among non-blacks MDRD (S/P/Bld) [Vol rate/Area] mL/min/{1.73_m2} Normal >60 [facility] Comment on above: Result Comment: These results are not intended for use in patients <18 years of age. eGFR results are calculated without a race factor using the 2020 CKD-EPI equation. Careful clinical correlation is recommended, particularly when comparing to results calculated using previous equations. The CKD-EPI equation is less accurate in patients with extremes of muscle mass, extra-renal metabolism of creatine, excessive creatine ingestion, or following therapy that affects renal tubular secretion. Performed By: #### C RP, CP, SED, CBC #### [address] [place], [place] [phone] [employer] Special Event Associate: Paul Jones MD Glucose [Mass/Vol] 85 mg/dL Normal 74-99 [facility] Comment on above: Performed By: #### C RP, CP, SED, CBC #### [address] [place] [address] Retail Special Event Associate: Paul Jones MD Potassium [Moles/Vol] 3.9 mmol/L Normal 3.7-5.3 [facility] Comment on above: Performed By: #### C RP, CP, SED, CBC #### [address] [place] [address] Retail Special Event Associate: Paul Jones MD Protein [Mass/Vol] 6.9 g/dL Normal 6.6-8.7 [facility] Comment on above: Performed By: #### C RP, CP, SED, CBC #### [address] [place] [address] Retail Special Event Associate: Paul Jones MD Sodium [Moles/Vol] 141 mmol/L Normal 136-145 [facility] Comment on above: Performed By: #### C RP, CP, SED, CBC #### [address] [place] [address] Retail Special Event Associate: Paul Jones MD Urea nitrogen [Mass/Vol] 11 mg/dL Normal 6-20 [facility] Comment on above: Performed By: #### C RP, CP, SED, CBC #### [address] [place] [address] Retail Special Event Associate: Paul Jones MD Sedimentation Rateon 024 Sedimentation Rate 65 mm/Hr High 0-30 [facility] Comment on above: Performed By: #### C RP, CP, SED, CBC #### [facility] [address] [place] [address] Retail Special Event Associate: Paul Jones MD IR PICC Placementon 06-01-20 24 IR PICC Placement CLINICAL HISTORY: Evaluate PICC placement. REASON FOR PICC: Long-term IV antibiotics. DEVICE: 4 Italian single lumen PICC INSERTION LOCATION: Right brachial vein. ACCESS CUT LENGTH: 44 cm TECHNIQUE AND FINDINGS: A single, upright portable image of the chest was obtained. Comparison is made to an examination dated 11/12/2015. FINDINGS: A single intraoperative image of the chest demonstrates tortuosity of the aorta. There is no acute cardiopulmonary process within the imaged lungs. A right-sided PICC is in place with the tip superimposing the SVC and ready for use. Final Dictated by: Barney Martinez MD Dictated DT/TM: 06/01/2024 3:37 pm Signed by: Barney Martinez MD Signed (Electronic Signature): 06/01/2024 3:38 pm (If Report Is Signed, Electronically Signed in Other Vendor System) Normal [facility] Infectious Disease Office/Cl inic Noteon 05-31-2024 Infectious Disease Office/Clinic Note Assessment/Plan 1. Left hip prosthetic joint infection Discussed options of intravenous antibiotic versus oral. Standard of care is the initial IV phase followed by oral for total of 3 months. Since that may be potential concern with absorption given her previous gastric surgery may even go to 8 weeks of IV. Discussed potential complications of PICC line including abdomen infection and blood clot. Long-term antibiotics have potential for allergic reaction, GI effects including C. difficile, other effects on liver kidney etc. If oral antibiotics were used concern for increased probability of failure needing more surgery etc. Even with IV antibiotic there is still potential for needing more surgery to explant joint etc. Recheck with me in about 2 weeks. Chief Complaint New patient here for Prosthetic hip joint infection History of Present Illness Seen today for with concern of left hip infection after undergoing replacement on April 19. Preoperatively MRSA screen was positive and she was given Bactroban prior to surgery. She was put on fluconazole for concerns of Hawa infection with some skin tear as well. Developed some drainage from the wound and was taken back to surgery on May 17. Started on cephalexin on 09 May prior to surgery. Wound explored and irrigated. Track to the joint was noted. Cultures were taken. No removal or exchange of components. Wound VAC was placed. Has been on fluconazole and Augmentin. She has not had any significant problems with the loose stools after her Brooke-en-Y surgery. Nutritional supplements have not been needed. She used to have several infections when she was in her teenage years and into her 20s but then has not had any recurrent problems. She has never been told of MRSA previously. No history of circulation or diabetes problems. Blood pressures have been under better control since weight loss. Review of Systems Other review systems negative at present. Physical Exam Vitals & Measurements T: 36.3 ?C (Temporal Artery) HR: 92 (Peripheral) BP: 134/86 SpO2: 99 HT: 164 cm WT: 106.4 kg WT: 106.4 kg (Dosing) BMI: 39.56 Vital signs okay. No acute distress. Sclera conjunctiva normal. Oral mucosa okay without thrush. Lungs are clear. Heart regular rate and rhythm. No murmur. Abdomen soft nontender. Incisions from prior surgery are well-healed. Left hip anterior wound with VAC in place. Edges look good. Inguinal areas without obvious Hawa present. Left leg with 2 to 3+ swelling. Right leg about 1-2+. Uses cane for stability. Cultures from May 17 grew Proteus susceptible to Augmentin and intermediate to Unasyn PRAVEEN of 8 for cefoxitin PRAVEEN of 1 for ceftriaxone and Cipro susceptible to sulfa. Additional Vitals BP Position/Location: Sitting, Left arm Medical Decision Making Chronic conditions NOT treated during this visit that affected my overall medical decision making: [] Treatment plans discussed but not opted for at this time: [] Prescribed medication that requires intensive monitoring for toxicity: [] I have reviewed the patient?s medication list for medication interactions/contrain dications and/or for upcoming procedures: [yes or no] Time Spent with the Patient I have personally spent [] minutes on this date, directly related to today's patient visit, including pre and post visit work, for this date of service. Time listed does not include time spent on separately billable services. Problem List/Past Medical History Ongoing Hypertension MRSA carrier Obesity Historical No qualifying data Procedure/Surgical History Caesarean Section Caesarean Section (01/23/1993) Right Rotator Cuff Repair (11/14/2021) Bariatric Surgery (09/13/2023) Total replacement of left hip joint (04/19/2024) I&D left hip wound and wound VAC placement (05/17/2024) Medications amoxicillin-clavulana te 875 mg-125 mg oral tablet, 1 tabs, Oral, BID, 14 tabs, 0 Refill(s) biotin, 5000 mg, Oral, Daily Calcium Chews, Oral, BID fluconazole 200 mg oral tablet, 14 EA, 0 Refill(s), TAKE 2 TABLETS BY MOUTH DAILY labetalol 100 mg oral tablet, 180 EA, 0 Refill(s), TAKE ONE TABLET BY MOUTH TWICE DAILY IN THE MORNING AND AT BEDTIME Multi Vitamin w/Iron, 1 caps, Oral, Daily thiamine, 1 caps, Oral, Daily Allergies No Known Allergies Social History Alcohol Current, 1-2 times per year Substance Abuse Denies All Tobacco Former smoker, quit more than 5 years ago Use:. Family History Diabetes mellitus: Mother and Father. Hypertension: Mother and Father. Health Status Family Member(s) Immunizations Vaccine Date Status SARS-CoV-2 (COVID-19) mRNA BNT-162b2 vax 08/24/2021 Recorded SARS-CoV-2 (COVID-19) mRNA BNT-162b2 vax 01/17/2021 Recorded SARS-CoV-2 (COVID-19) mRNA BNT-162b2 vax 12/26/2020 Recorded tetanus/diphtheria/pe rtussis, acel(Tdap) 05/15/2014 Recorded Lab Results May 17 WBC 6.8 hemoglobin 11 platelets elevated 482,000 differential normal glucose 97 BUN 15 creatinine 0.3 electrolytes norm (more content not included)... Normal [facility] Provider Letteron 05-31-2024 Provider Letter Yoni Mcelroy M.D. [address] [address] Re: Rain Pollard Date of Visit: 05/31/[address] Kofi Mcelroy, Thank you for your referral to my office. Attached you will find the most recent office visit note. Please call if you have any questions or concerns. Sincerely, Angus Brooke MD [address] [facility], [address] [place] [address] The following document(s) were included in the letter: May 31, 2024 14:56:44 EDT - (05/31/2024) Infectious Disease Office Visit Note Normal [facility] XR HIP LT 2-3 VIEWS W OR WO PELVISon 10-27-2023 XR HIP LT 2-3 VIEWS W OR WO PELVIS XR HIP LT 2-3 VIEWS W OR WO PELVIS CLINICAL INFORMATION: Pain of left hip TECHNIQUE: XR HIP LT 2-3 VIEWS W OR WO PELVIS 3 views left hip were obtained. Advanced left hip osteoarthritic changes noted superior joint space narrowing and subchondral sclerosis. Osteoarthritic present. No acute fracture. IMPRESSION: Advanced osteoarthritis. Finalized by Lavon Godinez MD on 10/27/2023 7:38 PM Normal [facility] XR Pelvis and Hip - left 2 V iewson 10-27-2023 CLINICAL INFORMATION : Pain of left hip TECHNIQUE: XR HIP LT 2-3 VIEWS W OR WO PELVIS 3 views left hip were obtained. Advanced left hip osteoarthritic changes noted superior joint space narrowing and subchondral sclerosis. Osteoarthritic present. No acute fracture. IMPRESSION: Advanced osteoarthritis. Finalized by Lavon Godinez MD on 10/27/2023 7:38 PM SECTRAPALavon Leblanc M D - 10/27/2023 CLINICAL INFORMATION: Pain of left hip TECHNIQUE: XR HIP LT 2-3 VIEWS W OR WO PELVIS 3 views left hip were obtained. Advanced left hip osteoarthritic changes noted superior joint space narrowing and subchondral sclerosis. Osteoarthritic present. No acute fracture. IMPRESSION: Advanced osteoarthritis. Finalized by Lavon Godinez MD on 10/27/2023 7:38 PM [facility] Radiology Study observation (narrative) [facility] XR Pelvis and Hip - left 2 V iewsOrdered By: Lavon Godinez on 10-27-2023 [facility] Work Phone: XR SPINE LUMBAR 2 OR 3 VWSon 10-27-2023 XR SPINE LUMBAR 2 OR 3 VWS XR SPINE LUMBAR 2 OR 3 VWS CLINICAL INFORMATION: Sciatica of left side TECHNIQUE: XR SPINE LUMBAR 2 OR 3 VWS 3 views the lumbar spine were obtained. Ikzr-kq-tpczjeni lumbar degenerative changes noted. Endplates appear intact. No acute fracture. Sacral ala unremarkable. IMPRESSION: Pjnn-ud-gmjoodkh degenerative changes. Finalized by Lavon Godinez MD on 10/27/2023 8:16 PM Normal [facility] CBC AUTO DIFFon 08-21-2021 BASO # 0.0 103/ul Normal 0.0-0.1 [facility] Comment on above: Performed By: #### C BC #### [facility] [address] [address] [address] Frederick Hallman Basophils/100 WBC (Bld) 0.6 % Normal 0.2-2.0 [facility] Comment on above: Performed By: #### C BC #### [facility] [address] [address] [address] Frederick Hallman EO # 0.1 103/ul Normal 0.0-0.7 [facility] Comment on above: Performed By: #### C BC #### [facility] [address] [address] [address] Frederick Hallman Eosinophils/100 WBC (Bld) 1.6 % Normal 0.9-7.0 [facility] Comment on above: Performed By: #### C BC #### [facility] [address] [address] [address] Frederick Hallman Erythrocyte distribution width (RBC) [Ratio] 12.7 % Normal 11.0-15.0 [facility] Comment on above: Performed By: #### C BC #### [facility] [address] [address] [address] Frederick Hallman Hematocrit (Bld) [Volume fraction] 44.1 % Normal 36.0-48.0 [facility] Comment on above: Performed By: #### C BC #### [facility] [address] [place] [address] Dr. Frederick Hallman Hemoglobin (Bld) [Mass/Vol] 13.9 g/dL Normal 12.0-16.0 [facility] Comment on above: Performed By: #### C BC #### [facility] [address] [place] [address] Dr. Frederick Hallman IG # 0.03 10e3/ul Normal 0.00-0.03 [facility] Comment on above: Performed By: #### C BC #### [facility] [address] [place] [address] Dr. Frederick Hallman IG % 0.5 % Normal 0.0-0.5 [facility] Comment on above: Performed By: #### C BC #### [facility] [address] [place] [address] Dr. Frederick Hallman LYMPH # 1.6 103/ul Normal 1.2-3.8 [facility] Comment on above: Performed By: #### C BC #### [facility] [address] [place] [address] Dr. Frederick Hallman Lymphocytes/100 WBC (Bld) 25.5 % Normal 20.5-60.0 [facility] Comment on above: Performed By: #### C BC #### [facility] [address] [place] [address] Dr. Frederick Hallman MANUAL DIFF REQ NO Normal [facility] Comment on above: Performed By: #### C BC #### [facility] [address] [place] [address] Dr. Frederick Hallman MCH (RBC) [Entitic mass] 29.1 pg Normal 26.7-34.0 [facility] Comment on above: Performed By: #### C BC #### [facility] [address] [place] [address] Dr. Frederick Hallman MCHC (RBC) [Mass/Vol] 31.5 g/dL Normal 29.9-35.2 [facility] Comment on above: Performed By: #### C BC #### [facility] [address] [place] [address] Dr. Frederick Hallman MCV (RBC) [Entitic vol] 92.5 fL Normal 81.0-99.0 [facility] Comment on above: Performed By: #### C BC #### [facility] [address] [place] [address] Dr. Frederick Hallman MONO # 0.5 103/ul Normal 0.3-0.8 [facility] Comment on above: Performed By: #### C BC #### [facility] [address] [place] [address] Dr. Frederick Hallman Monocytes/100 WBC (Bld) 8.2 % Normal 1.7-12.0 [facility] Comment on above: Performed By: #### C BC #### [facility] [address] [place] [address] Dr. Frederick Hallman NEUT # 3.9 103/ul Normal 1.4-6.5 [facility] Comment on above: Performed By: #### C BC #### [facility] [address] [place] [address] Dr. Frederick Hallman Neutrophils/100 WBC (Bld) 63.6 % Normal 43.0-75.0 [facility] Comment on above: Performed By: #### C BC #### [facility] [address] [place] [address] Dr. Frederick Hallman Platelet mean volume (Bld) [Entitic vol] 10.2 fL Normal 9.5-13.5 [facility] Comment on above: Performed By: #### C BC #### [facility] [address] [place] [address] Dr. Frederick Hallman PLT 248 103/ul Normal 150-450 [facility] Comment on above: Performed By: #### C BC #### [facility] [address] [place] [address] Dr. Frederick Hallman RBC 4.77 106/ul Normal 4.20-5.40 [facility] Comment on above: Performed By: #### C BC #### [facility] [address] [place] [address] Dr. Frederick Hallman WBC 6.2 103/ul Normal 4.0-11.0 [facility] Comment on above: Performed By: #### C BC #### [facility] [address] [address] [address] Frederick Hallman PREG QUANT HCGon 08-21-2021 HCG QUANT <1 Normal [facility] Comment on above: Performed By: #### P REGQNT #### [facility] [address] [address] [address] Frederick Hallman HCG RANGE SEE BELOW Normal [facility] Comment on above: Result Comment: 5-50 0-1 WEEK 40-300 1-2 WEEKS 100-1,000 2-3 WEEKS 500-6,000 3-4 WEEKS 5,000-200,000 1-2 MONTHS 10,000-100,000 2-3 MONTHS 3,000-50,000 2ND TRIMESTER 1,000-50,000 3RD TRIMESTER Performed By: #### P REGQNT #### [facility] [address] [address] [address] Frederick Hallman Covid-19 PCR (CVDTBH)on 07-28 SARS-CoV-2 (COVID-19) RNA ZBIGNIEW+probe Ql (Unsp spec) Not detected Normal NOT DETECTED [facility] Comment on above: Result Comment: This test is not yet approved or cleared by the [place] FDA. When there are no FDA-approved or cleared tests available, and other criteria are met, FDA can make tests available under an emergency access mechanism called an Emergency Use Authorization (EUA). The EUA for this test is supported by the [place] of Health and Human Service's (HHS's) declaration that circumstances exist to justify the emergency use of in vitro diagnostics for the detection and/or diagnosis of the virus that causes COVID-19. This EUA will remain in effect (meaning this test can be used) for the duration of the COVID-19 declaration justifying emergency of IVDs, unless it is terminated or revoked by FDA (after which the test may no longer be used). When diagnostic testing is negative, the possibility of a false negative should be considered in the context of a patient's recent exposures and the presence of clinical signs and symptoms consistent with SARS-CoV-2. Performed By: #### C VDTBH #### [facility] [address] [place] [address] Dr. Frederick Hallman US PELVIS AND TRANSVAGon US PELVIS AND TRANSVAG Pelvic ultrasound. HISTORY: . Excessive and frequent menstruation . COMPARISON: None. TECHNIQUE: Both transabdominal and transvaginal scanning was performed FINDINGS: Scanning of the pelvis demonstrates uterus to measure 9.3 x 4.7 x 5.8 cm. Endometrial complex measures 8.6 mm and appears unremarkable. Right ovary measures 2.9 x 1.6 x 2 cm. Color-flow is noted. Resistive indexes 0.51. No masses are noted. Left ovary measures 2.5 x 1.8 x 1.8 cm. Color-flow is noted. Resistive indexes 0.55. No masses are noted. There are couple small cysts within the cervix consistent with nabothian cysts. IMPRESSION: 1. Normal-appearing uterus. 2. Normal-appearing ovaries. 3. No fluid in the cul-de-sac. Electronically authenticated by: PAUL MCGREGOR Date: 2021-06-18 08:08 Normal [facility] CBC AUTO DIFFon 06-17-2021 BASO # 0.1 103/ul Normal 0.0-0.1 [facility] Comment on above: Performed By: #### C BC #### [facility] [address] [place] [address] Dr. Frederick Hallman Basophils/100 WBC (Bld) 0.9 % Normal 0.2-2.0 [facility] Comment on above: Performed By: #### C BC #### [facility] [address] [place] [address] Dr. Frederick Hallman EO # 0.1 103/ul Normal 0.0-0.7 [facility] Comment on above: Performed By: #### C BC #### [facility] [address] [place] [address] Dr. Frederick Hallman Eosinophils/100 WBC (Bld) 1.7 % Normal 0.9-7.0 [facility] Comment on above: Performed By: #### C BC #### [facility] [address] [place] [address] Dr. Frederick Hallman Erythrocyte distribution width (RBC) [Ratio] 13.2 % Normal 11.0-15.0 [facility] Comment on above: Performed By: #### C BC #### [facility] [address] [place] [address] Dr. Frederick Hallman Hematocrit (Bld) [Volume fraction] 43.0 % Normal 36.0-48.0 [facility] Comment on above: Performed By: #### C BC #### [facility] [address] [place] [address] Dr. Frederick Hallman Hemoglobin (Bld) [Mass/Vol] 13.4 g/dL Normal 12.0-16.0 [facility] Comment on above: Performed By: #### C BC #### [facility] [address] [place] [address] Dr. Frederick Hallman IG # 0.03 10e3/ul Normal 0.00-0.03 [facility] Comment on above: Performed By: #### C BC #### [facility] [address] [place] [address] Dr. Frederick Hallman IG % 0.4 % Normal 0.0-0.5 [facility] Comment on above: Performed By: #### C BC #### [facility] [address] [place] [address] Dr. Frederick Hallman LYMPH # 1.9 103/ul Normal 1.2-3.8 [facility] Comment on above: Performed By: #### C BC #### [facility] [address] [place] [address] Dr. Frederick Hallman Lymphocytes/100 WBC (Bld) 23.5 % Normal 20.5-60.0 [facility] Comment on above: Performed By: #### C BC #### [facility] [address] [place] [address] Dr. Frederick Hallman MANUAL DIFF REQ NO Normal [facility] Comment on above: Performed By: #### C BC #### [facility] [address] [place] [address] Dr. Frederick Hallman MCH (RBC) [Entitic mass] 29.2 pg Normal 26.7-34.0 [facility] Comment on above: Performed By: #### C BC #### [facility] [address] [address] [address] Frederick Hallman MCHC (RBC) [Mass/Vol] 31.2 g/dL Normal 29.9-35.2 [facility] Comment on above: Performed By: #### C BC #### [facility] [address] [place] [address] Dr. Frederick Hallman MCV (RBC) [Entitic vol] 93.7 fL Normal 81.0-99.0 [facility] Comment on above: Performed By: #### C BC #### [facility] [address] [place] [address] Dr. Frederick Hallman MONO # 0.8 103/ul Normal 0.3-0.8 [facility] Comment on above: Performed By: #### C BC #### [facility] [address] [place] [address] Dr. Frederick Hallman Monocytes/100 WBC (Bld) 9.8 % Normal 1.7-12.0 [facility] Comment on above: Performed By: #### C BC #### [facility] [address] [place] [address] Dr. Frederick Hallman NEUT # 5.2 103/ul Normal 1.4-6.5 [facility] Comment on above: Performed By: #### C BC #### [facility] [address] [place] [address] Dr. Frederick Hallman Neutrophils/100 WBC (Bld) 63.7 % Normal 43.0-75.0 [facility] Comment on above: Performed By: #### C BC #### [facility] [address] [place] [address] Dr. Frederick Hallman Platelet mean volume (Bld) [Entitic vol] 10.3 fL Normal 9.5-13.5 [facility] Comment on above: Performed By: #### C BC #### [facility] [address] [place] [address] Dr. Frederick Hallman PLT 256 103/ul Normal 150-450 [facility] Comment on above: Performed By: #### C BC #### [facility] [address] [address] [address] Frederick Hallman RBC 4.59 106/ul Normal 4.20-5.40 [facility] Comment on above: Performed By: #### C BC #### [facility] [address] [address] [address] Frederick Hallman WBC 8.1 103/ul Normal 4.0-11.0 [facility] Comment on above: Performed By: #### C BC #### [facility] [address] [address] [address] Frederick Hallman PREG QUANT HCGon 06-17-2021 HCG QUANT <1 Normal [facility] Comment on above: Performed By: #### T SH, PREGQNT #### [facility] [address] [place] [address] Dr. Frederick Hallman HCG RANGE SEE BELOW Normal [facility] Comment on above: Result Comment: 5-50 0-1 WEEK 40-300 1-2 WEEKS 100-1,000 2-3 WEEKS 500-6,000 3-4 WEEKS 5,000-200,000 1-2 MONTHS 10,000-100,000 2-3 MONTHS 3,000-50,000 2ND TRIMESTER 1,000-50,000 3RD TRIMESTER Performed By: #### T SH, PREGQNT #### [facility] [address] [place] [address] Dr. Frederick Hallman PROTIMEon 06-17-2021 INR Coag (PPP) [Relative time] 0.95 {INR} Normal [facility] Comment on above: Performed By: #### P T, PTT #### [facility] [address] [place] [address] Dr. Frederick Hallman INR GUIDELINES SEE BELOW Normal [facility] Comment on above: Result Comment: MAEVE RED INR: 2.0 - 3.0 CONDITIONS NOT LISTED BELOW 2.5 - 3.5 FOR PROSTHETIC HEART VALVE REPLACEMENT 2.5 - 3.5 RECURRENT THROMBOSIS Performed By: #### P T, PTT #### [facility] [address] [place] [address] Dr. Frederick Hallman PT Coag (PPP) [Time] 10.3 s Normal 9.0-11.6 [facility] Comment on above: Performed By: #### P T, PTT #### [facility] [address] [place] [address] Dr. Frederick Hallman PTTon 06-17-2021 aPTT Coag (Bld) [Time] 25.8 s Normal 22.3-36.2 [facility] Comment on above: Performed By: #### P T, PTT #### [facility] [address] [place] [address] Dr. Frederick Hallman TSHon 06-17-2021 TSH 1.799 uIU/mL Normal 0.470-4.680 [facility] Comment on above: Performed By: #### T SH, PREGQNT #### [facility] [address] [place] [address] Dr. Frederick Hallman TSH RANGE SEE BELOW Normal [facility] Comment on above: Result Comment: <0.3 4 UIU/ml HYPERTHYROID 0.34-5.60 UIU/ml EUTHYROID >5.60 UIU/ml HYPOTHYROID Performed By: #### T SH, PREGQNT #### [facility] [address] [place] [address] Dr. Frederick Hallman Vital Signs Date Time Vital Sign Value Performing Clinician Facility 12-19-2023 15:22-0400 Body mass index (BMI) [Ratio] 47.76 kg/m2 Tree Jaime MD Work Phone: [facility] 12-19-2023 15:22-0400 Body weight 130.18 kg Tree Jaime MD Work Phone: [facility] 12-19-2023 15:22-0400 Diastolic blood pressure 84 mm[Hg] Tree Jaime MD Work Phone: [facility] 12-19-2023 15:22-0400 Heart rate 76 /min Tree Jaime MD Work Phone: [facility] 12-19-2023 15:22-0400 Systolic blood pressure 149 mm[Hg] Tree Jaime MD Work Phone: [facility] [employer] [facility] 11-01-2023 14:48-0500 Body height 162.6 cm Michaela Ma NP Work Phone: [facility] 11-01-2023 14:48-0500 Body mass index (BMI) [Ratio] 54.07 kg/m2 Michaela Ma EYE CLINIC MANAGER Work Phone: [facility] 11-01-2023 14:48-0500 Body weight 142.88 kg Michaela Ma EYE CLINIC MANAGER Work Phone: [facility] 10-21-2023 15:03-0500 Body mass index (BMI) [Ratio] 52.42 kg/m2 Tree Jaime MD Work Phone: [facility] [employer] [facility] 10-21-2023 15:03-0500 Body weight 142.88 kg Tree Jaime MD Work Phone: [facility] 10-21-2023 15:03-0500 Diastolic blood pressure 90 mm[Hg] Tree Jaime MD Work Phone: [facility] [employer] 10-21-2023 15:03-0500 Heart rate 92 /min Tree Jaime MD Work Phone: [facility] [employer] 10-21-2023 15:03-0500 Systolic blood pressure 171 mm[Hg] Tree Jaime MD Work Phone: [facility] [employer] 09-29-2022 16:45-0500 Body height 160.66 cm Tay Tucekr Other [facility] Other 09-29-2022 16:45-0500 Body mass index (BMI) [Ratio] 59.9 kg/m2 Tay Tucker Other [facility] Other 09-29-2022 16:45-0500 Body weight 154.63 kg Tay Tucker Other [facility] Other 09-29-2022 16:45-0500 Diastolic blood pressure 89 mm[Hg] Tay Scottdiff Other [facility] Other 09-29-2022 16:45-0500 Respiratory rate 18 /min Tay Scottdiff Other [facility] Other 09-29-2022 16:45-0500 SaO2% (BldA) [Mass fraction] 98 % Tay Scottdiff Other [facility] Other 09-29-2022 16:45-0500 Systolic blood pressure 132 mm[Hg] Tay Scottdiff Other [facility] Other 09-23-2022 15:00-0500 Body height 160.66 cm Chapis Saldana Other [facility] Other 08-09-2022 15:30-0500 Body height 160.66 cm Tay Tucker Other [facility] Other 08-09-2022 15:30-0500 Body mass index (BMI) [Ratio] 62.15 kg/m2 Tay Scottdiff Other [facility] Other 08-09-2022 15:30-0500 Body weight 160.44 kg Tay Scottdiff Other [facility] Other 08-09-2022 15:30-0500 Diastolic blood pressure 109 mm[Hg] Tayluis Tucker Other [facility] Other 08-09-2022 15:30-0500 Respiratory rate 20 /min Tay Scottdiff Other [facility] Other 08-09-2022 15:30-0500 SaO2% (BldA) [Mass fraction] 99 % Tay Tucker Other [facility] Other 08-09-2022 15:30-0500 Systolic blood pressure 190 mm[Hg] Tay Tucker Other [facility] Other Encounters Encounter Date Encounter Type Care Provider Facility Start: 06-28-2024 End: 06-28-2024 ambulatory Angus Brooke MD Facility:Infectious Disease Start: 06-26-2024 ambulatory [facility] Start: 06-25-2024 End: 06-25-2024 ambulatory [facility] Start: 06-14-2024 End: 06-14-2024 ambulatory Angus Brooke MD Facility:Infectious Disease Start: 06-04-2024 End: 06-04-2024 ambulatory ANGUS BROOKE [facility] Start: 06-01-2024 End: 06-01-2024 ambulatory Physician Unavailable Facility:[facility] Start: 05-31-2024 End: 05-31-2024 ambulatory Angus Brooke MD Facility:Infectious Disease Start: 05-29-2024 ambulatory [facility] Start: 04-26-2024 End: 05-27-2024 ambulatory [facility] Start: 04-13-2024 End: 04-13-2024 ambulatory TREE Aguilar [facility] Start: 04-05-2024 End: 04-26-2024 ambulatory [facility] Start: 12-28-2023 Telephone encounter [facility] Comment on above: disability forms Start: 12-19-2023 End: 12-19-2023 Office outpatient visit 15 minutes Tree Jaime MD [facility] Comment on above: Pain of left hip (Pr imary Dx) Start: 12-19-2023 End: 12-19-2023 ambulatory [facility] Start: 11-23-2023 Telephone encounter [facility] Start: 11-02-2023 Orders Only Tree miller MD Work Phone: [facility] Comment on above: Primary osteoarthrit is of left hip (Primary Dx) Start: 11-01-2023 End: 11-01-2023 ambulatory MICHAELA MA Not Available Start: 11-01-2023 End: 11-01-2023 Office outpatient new 30 minutes Michaela Ma EYE CLINIC MANAGER Work Phone: [facility] Comment on above: Primary osteoarthrit is of left hip (Primary Dx); Left hip pain; History of bariatric surgery Start: 10-31-2023 Telephone encounter [facility] Start: 10-27-2023 End: 10-27-2023 ambulatory [facility] Start: 10-26-2023 Telephone encounter Dimple [facility] Start: 10-21-2023 End: 10-21-2023 ambulatory [facility] Start: 10-21-2023 End: 10-21-2023 Office outpatient visit 15 minutes Tree Jaime MD Work Phone: [facility] Comment on above: Sciatica of left vasiliy e (Primary Dx) Start: 09-29-2022 End: 09-30-2022 ambulatory NON STAFF [facility] Other Start: 09-29-2022 Follow-up encounter Tay rich[facility] Start: 09-23-2022 End: 09-23-2022 ambulatory Chapis Saldana Other [facility] Other Start: 09-23-2022 IBT FOR OBESITY GROU P 2-10 30M Chapis Saldana [facility] Start: 09-02-2022 End: 09-02-2022 ambulatory Tayluis Scottdiff Other [facility] Other Start: 09-02-2022 Telephone encounter Tay Caitlin [facility]co [facility] Start: 08-31-2022 End: 08-31-2022 ambulatory Tay Cailtin Other [facility] Other Start: 08-31-2022 Telephone encounter Tay Caitlin [facility]co [facility] Start: 08-09-2022 End: 08-09-2022 ambulatory Tay Scottdiff Other [facility] Other Start: 08-09-2022 Nutrition therapy Tay Prater [facility] Start: 06-28-2022 End: 06-28-2022 ambulatory Chapis Saldana Other [facility] Other Start: 06-28-2022 Telephone encounter Chapis Saldana [facility] Start: 08-27-2021 Encounter for preprocedural laboratory examination DR RACHEL CANDELARIO [facility] Start: 08-21-2021 End: 08-21-[address] RACHEL CANDELARIO Facility:[facility] Start: 08-18-2021 End: 08-19-[address] RACHEL CANDELARIO Facility:[facility] Start: 08-18-2021 End: 08-19-2021 Encounter for preprocedural laboratory examination DR RACHEL CANDELARIO Facility:[facility] Start: 08-17-2021 Encounter for other preprocedural examination DR RACHEL CANDELARIO [facility] Start: 08-12-2021 End: 08-13-[address] RACHEL CANDELARIO Facility:[facility] Start: 08-12-2021 End: 08-13-2021 Encounter for other preprocedural examination DR RACHEL KODAK Facility:[facility] Start: 06-17-2021 End: 06-18-[address] RACHEL CANDELARIO Facility:[facility] Procedures Date Procedure Procedure Detail Performing Clinician Start: 05-21-2021 Adult depression screening assessment Tree Jaime MD Work Phone: Plan of Treatment Date Care Activity Detail Author Start: 12-18-2024 Adult BMI Screening Adult BMI Screen ing [facility] Start: 12-18-2024 Tobacco Screening Tobacco Screening [facility] Start: 10-21-2024 Adult BMI Screening Adult BMI Screen ing [facility] Start: 10-21-2024 Tobacco Screening Tobacco Screening [facility] Start: 07-12-2024 ambulatory Ambulatory Facility:I [facility]fectious Disease Start: 05-27-2024 Influenza vaccination Influenza Vacc ine [facility] Start: 05-15-2024 DTaP,Tdap and Td Vac cines (2 - Td or Tdap) DTaP,Tdap and Td Vaccines (2 - Td or Tdap) [facility] Start: 10-27-2023 End: 10-27-2024 XR Lumbar spine 2 or 3 Views [facility] Work Phone: Comment on above: Expected: 10/27/2023 , Expires: 10/27/2024 Start: 05-27-2023 COVID-19 Vaccine ( season) COVID-19 Vaccine ( season) [facility] Start: 05-27-2023 Influenza vaccination [facility] Start: 2023 Administration of varicella zoster vaccine Zoster (Shingles) Vaccine (1 of 2) [facility] Start: 05-21-2022 Depression Screening Depression Scre ening [facility] Start: 2013 Screening for malign ant neoplasm of breast Mammogram [facility] Start: 2003 Screening for malign ant neoplasm of cervix [facility] Start: 1994 Screening for malign ant neoplasm of cervix Pap Smear [facility] Start: 1973 Screening for malign ant neoplasm of colon [facility] Immunizations Immunization Date Immunization Notes Care Provider Fa cility 01-17-2021 COVID-19, mRNA, LNP- S, PF, 30mcg/0.3mL Dose Tree Jaime [facility] 12-26-2020 COVID-19, mRNA, LNP- S, PF, 30mcg/0.3mL Dose Tree Jaime MD [facility] 05-15-2014 tetanus toxoid, redu caitlin diphtheria toxoid, and acellular pertussis vaccine, adsorbed Tree Jaime MD Work Phone: [facility] Payers Date Payer Category Payer Private Health Insurance [id number] 2023 Private Health Insurance [id number] 2022 Private Health Insurance [id number] 2022 Self-pay 1973 Unknown [id number] 2.16.84 0.1.937540.3.579.2.593 1973 Unknown [id number] 2.16.84 0.1.509548.3.579.2.593 1973 Unknown [id number] 2.16.84 0.1.597461.3.579.2.593 1973 Unknown [id number] 2.16.84 0.1.716222.3.579.2.593 1973 Unknown [id number] 2.16.84 0.1.152472.3.579.2.1259 1973 Unknown [id number] 2.16.8 40.1.389673.3.579.2.1286 1973 Unknown [id number] 2.16.8 40.1.157470.3.579.2.1286 1973 Unknown [id number] 2.16.8 40.1.704650.3.579.2.1286 1973 Unknown [id number] 2.16.8 40.1.600119.3.579.2.173 1973 Unknown [id number] 2.16.8 40.1.974810.3.579.2.128 1973 Unknown [id number] 2.16.8 40.1.840050.3.579.2.1286 1973 Unknown [id number] 2.16.8 40.1.566456.3.579.2.1285 1973 Unknown [id number] 2.16.8 40.1.004673.3.579.2.1285 1973 Unknown [id number] 2.16.8 40.1.683779.3.579.2.128 1973 Unknown [id number] 2.16.8 40.1.540290.3.579.2.1285 1973 Unknown [id number] 2.16.8 40.1.739098.3.579.2.1285 1973 Unknown [id number] 2.16. 840.1.938019.3.579.2.196 1973 Unknown [id number] 2.16. 840.1.206071.3.579.2.196 1973 Unknown [id number] 2.16. 840.1.235391.3.579.2.196 1973 Unknown [id number] 2.16. 840.1.657430.3.579.2.196 1973 Unknown [id number] 2.16. 840.1.020515.3.579.2.196 1973 Unknown [id number] 2.16. 840.1.998882.3.579.2.196 1959 Private Health Insurance [id number] Unknown [id number] 2.16.8 40.1.840762.3.579.2.531 Social History Date Type Detail Facility Start: 12-29-2020 End: 10-21-2023 Sex Assigned At [facility] Start: 1975 Sex Assigned At Female [facility] Start: 08-17-2022 End: 11-01-2023 Tobacco smoking status NHIS Ex-smoker [facility] History of tobacco use Current smoker [facility] History of tobacco use Cigarette Smoker P [facility] Start: 08-17-2022 End: 11-01-2023 Tobacco use and exposure Smokeless tobacco non-user [facility] Start: 10-21-2023 End: 12-19-2023 Alcohol intake Current drinker of alcohol (finding) [facility] Start: 12-29-2020 End: 10-21-2023 History of Social function [facility] Adolescent depressio n screening assessment 0 [facility] Start: 05-21-2021 Alcohol Comment rarely [facility] Start: 1975 Sex Assigned At Not on file P [facility] Start: 11-01-2023 Alcohol intake Ex-drinker (finding) [facility] Medical Equipment Procedure Code Equipment Code Equipment Origin al Text Equipment Identifier Dates Ruby Sut 5.5mm Swivelock C Cls Eylt Vnt Bcmps Pk 19.1mm Ea=Bill Only - [id number] - [id number] Start: 11-13-2021 Clinical Notes 08-21-2021 to 12-28-2023 Telephone Encounter - Dimple Schneider [facility] - 12/28/2023 9:23 AM EDTTelephone Encounter - Dimple Schneider [facility] - 12/28/2023 9:23 AM Aimee Jaime MD - 12/19/2023 3:15 PM EDT Note Date & Type Note Facility 12-28-2023 Miscellaneous Notes Formattin g of this note might be different from the original. Called [employer] regarding patient's FMLA. We received a fax stating clarification was needed. I spoke with Bing who stated she would send a message to the geriatric case manager, Heavenly, to contact our office regarding the form and the confusion. I never received a call. I then received a call from patient stating she received a call from her geriatric case manager. The specialist stated she was unable to talk to our office even though release was signed by patient. She then notified me what was needing clarified on the form, and that the specialists stated it was noted on the forms. The patient was told what she was telling me was not on the form. I advised I will contact Pain Management to get the missing notes to verify those dates that the company needed. Once those notes are received we will send back the updated forms again. documented [facility]-28-2023 Telephone encount er Note Called [employer] regarding patient's FMLA. We received a fax stating clarification was needed. I spoke with Bing who stated she would send a message to the geriatric case manager, Heavenly, to contact our office regarding the form and the confusion. I never received a call. I then received a call from patient stating she received a call from her geriatric case manager. The specialist stated she was unable to talk to our office even though release was signed by patient. She then notified me what was needing clarified on the form, and that the specialists stated it was noted on the forms. The patient was told what she was telling me was not on the form. I advised I will contact Pain Management to get the missing notes to verify those dates that the company needed. Once those notes are received we will send back the updated forms again. [facility] 12-19-2023 History of Presen t illness Narrative Subjective Patient ID: Rain Pollard is a 48 y.o. female. Comes in for review of her FMLA and ongoing pain in her hip, buttock area, and left thigh. She is being followed by pain management. She had an injection that did not help. She is scheduled for another injection. She is on pain medication and a muscle relaxer. She has trouble getting comfortable to sleep and some days, especially more toward the end of the week, she can't stand long enough to do her job. She has missed more time than was initially estimated. The following portions of the patient's history were reviewed and updated as appropriate: allergies, current medications, past medical history, past social history, past surgical history, and problem list. Review of Systems Objective Physical Exam Constitutional: Comments: She interacts appropriately but is sometimes emotional regarding her lack of progress in obtaining relief. No other physical exam done today. Assessment/Plan Reviewed with her the follow up of her hip and leg pain and her FMLA needs. Will try to fill out her paperwork accordingly. Diagnoses and all orders for this visit: Pain of left hip documented in this encounter [facility] 11-23-2023 Miscellaneous Notes Formattin g of this note might be different from the original. Patient called stating she is need her work restrictions to not go up or down stairs extended. She states she saw the new ortho physician yesterday and she is getting referred to pain management. Please advise. OK Note faxed to [employer] documented in this encounter [facility] 11-23-2023 Telephone encount er Note Patient called stating she is need her work restrictions to not go up or down stairs extended. She states she saw the new ortho physician yesterday and she is getting referred to pain management. Please advise. [facility] 11-23-2023 Telephone encount er Note OK [facility] 11-23-2023 Telephone encount er Note Note faxed to [facility] 11-01-2023 History of Presen t illness Narrative NAME: Rain Pollard : 1975 HISTORY OF PRESENT ILLNESS: Rain Pollard is an 48 y.o. @ female. DR JAIME REFERRAL. LT HIP PAIN FOR YEARS, CONTINUES GETTING WORSE. TX BY PCP WITH XR'S, FLEXERIL AND GABAPENTIN. XRAY [facility] LT HIP AND LUMBAR 10/27/23 PAIN FROM HIP TO KNEE. STATES MAJORITY OF PAIN IS IN THIGH. TRIED TYL NO RELIEF. NO RELIEF FROM FLEXERIL AND GABAPENTIN. TRIED TOPICALS WITH NO RELIEF. DENIES N/T. FEELS LIKE THIGH IS TIGHTENING. STABBING PAIN. WORSE WITH WB. DOES NOT WAKE AT HS. WORSE WITH BENDING OVER, SITTING ON THE TOILET. ADMITS GRINDING/CLICKING IN HIP. PT IS MISERABLE AND STATES SHE CRIES EVERYDAY. HX GASTRIC BYPASS 09/13/23 PAST MEDICAL HISTORY: Past Medical History: Diagnosis Date History of gastric bypass Hypertension (CMS/HCC) PAST SURGICAL HISTORY: Past Surgical History: Procedure Laterality Date SECTION, CLASSIC x2 GASTRIC BYPASS 09/13/2023 ROTATOR CUFF REPAIR Right 10/2021 ALLERGIES: No Known Allergies HOME MEDICATIONS: Current Outpatient Medications Medication Instructions calcium carbonate (Os-Carlos) 1250 (500 Ca) MG tablet Oral, Daily labetalol (Normodyne) 100 MG tablet 2 times daily Multiple Vitamin (multivitamin) tablet 1 tablet, Oral, Daily omeprazole (PriLOSEC) [address] hernandez Vitals: Body mass index is 54.07 kg/m . PHYSICAL EXAM: Left Hip Exam Tenderness The patient is experiencing tenderness in the anterior (radiating into thigh). Range of Motion Left hip external rotation: decreased, unable to fully test due to pain. Left hip internal rotation: decreased, unable to fully test due to pain. Muscle Strength Abduction: 4/5 Adduction: 4/5 Flexion: 4/5 Other Left hip sensation: radicular pain. Pulse: present Comments: Antalgic gait IMAGING: I reviewed xray from [facility] of the left hip which showed severe left hip osteoarthritis I also reviewed PCP note where patient was seen for left hip pain. Noted to of just had bariatric surgery with concern for ventral hernia. Ortho referral placed. Procedures ASSESSMENT: Primary osteoarthritis of left hip Left hip pain History of bariatric surgery PLAN: I reviewed xray findings with the patient and discussed treatment options, answered questions. I educated patient that our treatment is very limited due to recent bariatric surgery and ventral hernia. We cannot do NSAIDs or steroids and she is not a surgical candidate at this time for VIVIANA. I discussed referral to tertiary care center or for her to call her bariatric surgeon at [facility] to see if they have orthopedic surgeon they recommend. Patient verbalized understanding and will follow up with our office as needed. Questions answered in laymen terms at the bedside. The diagnosis, home exercise plan and any ongoing restrictions/ recommendations reviewed. If unable to be reached in office, I recommend evaluation at nearest Emergency Room if any symptoms worsened or new symptoms develop for requiring urgent evaluation. Michaela Ma APRN-MUSEUM OR ZOO DIRECTOR documented in this encounter [facility] 10-31-2023 Miscellaneous Notes Formattin g of this note might be different from the original. ----- Message from Tree Jaime MD sent at 10/28/2023 4:38 PM EST ----- This hip arthritis is likely the cause of her symptoms. Would she like to see ortho? Patient notified and verbalized understanding. She would like to see [facility] ortho. She is wanting to know what she is supposed to do about the pain until she can get into see them. Please advise. Tylenol for pain is about her only option. documented in this encounter [facility] [employer] 10-31-2023 Telephone encount er Note ----- Message from Tree Jaime MD sent at 10/28/2023 4:38 PM EST ----- This hip arthritis is likely the cause of her symptoms. Would she like to see ortho? [facility] 10-31-2023 Telephone encount er Note Patient notified and verbalized understanding. She would like to see [facility]. She is wanting to know what she is supposed to do about the pain until she can get into see them. Please advise. [facility] 10-31-2023 Telephone encount er Note Tylenol for pain is about her only option. [facility] 10-26-2023 Miscellaneous Notes Formattin g of this note might be different from the original. Patient called stating that the medications she was given last week have not really helped. She is wanting to know what is the next step. Please advise. Maybe she should have an x-ray of her left hip and lumbar spine. Patient notified and is agreeable to getting x rays. Patient didn't go to work today due to barely being able to walk. She thinks tomorrow is going to be worse with work and not able to go then either. She will need a note or possibly FMLA. Please advise. X-rays ordered. Write a note for her to be off work today and tomorrow. Patient notified. Work note written and faxed to [facility] at [phone] documented in this encounter [facility] [employer] 10-26-2023 Telephone encount er Note Patient called stating that the medications she was given last week have not really helped. She is wanting to know what is the next step. Please advise. [facility] 10-26-2023 Telephone encount er Note Maybe she should have an x-ray of her left hip and lumbar spine. [facility] 10-26-2023 Telephone encount er Note Patient notified and is agreeable to getting x rays. Patient didn't go to work today due to barely being able to walk. She thinks tomorrow is going to be worse with work and not able to go then either. She will need a note or possibly FMLA. Please advise. [facility] 10-26-2023 Telephone encount er Note X-rays ordered. Write a note for her to be off work today and tomorrow. [facility] 10-26-2023 Telephone encount er Note Patient notified. Work note written and faxed to [employer] at [phone] [facility] 10-21-2023 History of Presen t illness Narrative Subjective Patient ID: Rain Pollard is a 48 y.o. female. She had her bariatric surgery and that went well so far. She may have a ventral hernia and that is being monitored through surgery. Because of her surgery she is not able to take nonsteroidal anti-inflammatories. She is having quite a bit of pain in her left buttock and left thigh. She recalls no injury. She does not have weakness in her legs. No fever or systemic symptoms. She is able to eat only a small amount. She has been very sad and tearful since her surgery. She denies thoughts of self-harm. She is not able to get comfortable to rest to sleep. The following portions of the patient's history were reviewed and updated as appropriate: allergies, current medications, past medical history, past social history, past surgical history, and problem list. Review of Systems Objective Physical Exam Constitutional: Comments: She is emotional but interacts appropriately. Abdominal: Comments: No findings of acute intra-abdominal process Musculoskeletal: Right lower leg: No edema. Left lower leg: No edema. Comments: No tenderness over the lumbar spine with percussion. Manipulation of the left hip increases her pain a little bit. She is not tender laterally over the hip. Skin: Comments: No rash or bruising in the area of pain in her left hip and leg Neurological: Comments: No focal neurological deficit in the left lower extremity Assessment/Plan Reviewed with her. Although she is upset today she is not suicidal. She is just looking for some relief of this pain. She can not take nonsteroidals and I would avoid steroids if possible as well. Local heat or ice for comfort as well as topical rubs can be used. Further pending her response to treatment. Diagnoses and all orders for this visit: Sciatica of left side - cyclobenzaprine (FLEXERIL) 5 mg tablet; Take 1 tablet (5 mg total) by mouth every 8 (eight) hours as needed for muscle spasms. - gabapentin (NEURONTIN) 100 mg capsule; Take 1 capsule (100 mg total) by mouth 3 (three) times a day. documented [facility] Evaluation note Encounter Date Diagnosis Assessment Notes Sep, Hypercholesterolemia (ICD-10 - E78.00) Sep, BMI 50.0-59.9, adult (ICD-10 - Z68.43) Sep, Hypertension (ICD-10 - I10) Sep, GERD (gastroesophageal reflux disease) (ICD-10 - K21.9) Sep, Snoring (ICD-10 - R06.83) [facility] 12-29-2022 Evaluation note* Encounter Date Diagnosis Assessment Notes Treatment Notes Treatment Clinical Notes Aug, Obesity, unspecified classification, unspecified obesity type, unspecified whether serious comorbidity present (ICD-10 - E66.9) Aug, BMI 60.0-69.9, adult (ICD-10 - Z68.44) Aug, Other Summary of Visi t: (A) Presentation of Plate Method discussed (B) Sample meal ideas reviewed (C) exercise recommendations reviewed Patient set the following goals: - patient set personal goal using given handout. [facility] 11-14-2022 Evaluation note* Encounter Date Diagnosis Assessment Notes Treatment Notes Treatment Clinical Notes Jul, Abnormal weight gain (ICD-10 - R63.5) Jul, Hypertension (ICD-10 - I10) Jul, Hypercholesterolemia (ICD-10 - E78.00) Jul, GERD (gastroesophage al reflux disease) (ICD-10 - K21.9) Jul, Snoring (ICD-10 - R06.83) [facility] 11-26-2021 NoteOPERATIVE NOTE OPERATION DATE: 08-21-21 ANESTHETIC:General. APPRAISER TIMBER:None. PREOPERATIVE DIAGNOSIS: Abnormal uterine bleeding. POSTOPERATIVE DIAGNOSIS: 1. Abnormal uterine bleeding. 2. Uterine polyp. PROCEDURE NAME:Laney endometrial ablation with hysteroscopy with removal of polyp with polyp forceps. BLOOD LOSS:5 mL. URINE OUTPUT:Yellow and clear. PROCEDURE: The patient was taken back to the OR where she was prepped and draped in the normal sterile fashion after being placed in the dorsal lithotomy position, after being placed under general anesthesia without difficulty. The anterior lip was grasped with a single tooth tenaculum. The patient was then gently sounds. The patient was gently sounded using Hegar dilators and the hysteroscope was passed through the cervix into the uterus where both ostia were seen. No gross evidence of polyps, fibroids or malignancy. A weighted speculum was placed in the patient's vagina 4 cm. The Laney ablation apparatus was set to approximately 5 in length. This was placed in through the cervix and into the uterus. After the seal was tested, at that time the total ablation of 120 seconds was performed with the Laney without difficulty. All instruments were removed from the vagina. Hysteroscopy was performed prior and polyp forceps used to remove uterine endometrial polyp prior to the ablation. [facility] Signed and Approved by: DR RACHEL CANDELARIO . 08/25/2021 23:24:00[facility] noteNo InformationNort Networked Organisms Other Evaluation noteNo assessment information [facility] Work Phone: Evaluation note* Diagnosis Sciatica of left side- Primary documented in this encounter [facility]* Diagnosis Sciatica of left side- Primary Pain of left hip Pain of left hip [facility] Diagnosis Primary osteoarthritis of left hip- Primary documented in this encounter [facility] note* Diagnosis Primary osteoarthritis of left hip- Primary Left hip pain Pain in joint, pelvic region and thigh History of bariatric surgery Bariatric surgery status [facility] Diagnosis Primary osteoarthritis of left hip- Primary documented in this encounter [facility]* Diagnosis Pain of left hip- Primary documented in this encounter [facility] [employer] System[facility] general Narrative - Reported* Type Description Date Medical History Hypertension Surgical History Rotator Cuff Surgery Surgical History ablasion 2021 Hospitalization History see above [facility] Other History general Narrative - Reported* Type Description Date Medical History Hypertension Surgical History Rotator Cuff Surgery -2021 Surgical History ablasion of uterus 2020 Surgical History C section x2 Hospitalization History see above [facility] Other InstructionsNot on filedocumented in this encounter [facility] [employer] SystemInstructionsNot on filedocumented in this encounter [facility] SystemInstructionsNot on filedocumented in this encounter [facility] [employer] SystemInstructionsNot on filedocumented in this encounter [facility] [employer] SystemInstructionsNot on filedocumented in this encounter [facility] SystemReason for referral (narrative)* Consultation (Routine) - Authorized Specialty Diagnoses / Procedures Referred By Ashley fry Referred To Contact Orthopedic Surgery Diagnoses Primary osteoarthritis of left hip Tree Jaime MD [address] [facility] [place] [address] Jeovany Saldivar Jr., DO [address] [facility] [address] [place] [address] Referral ID Status Reason Start Date Expiration Date Visits Requested Visits Authorized [id number] Authorized Specialty Services Required 10/31/2023 10/30/2024 1 1 [facility] Summary Purpose Family History No Family History Records FoundNo Family History Records FoundNo Family History Records FoundNo Family History Records FoundNo Family History Records FoundNo Family History Records FoundNo Family History Records Found Advance Directives No Advanced Directives Records FoundNo Advanced Directives Records FoundNo Advanced Directives Records FoundNo Advanced Directives Records FoundNo Advanced Directives Records FoundNo Advanced Directives Records FoundNo Advanced Directives Records Found Additional Source Comments INFORMATION SOURCE (unrecogn ized section and content) DATE CREATED AUTHOR 11/05/2021 [facility] DATE CREATED AUTHOR AUTHOR'S ORGANIZ ATION 03/29/2023 [facility] DATE CREATED AUTHOR AUTHOR'S ORGANIZ ATION 11/02/2023 [facility] EPIC DATE CREATED AUTHOR AUTHOR'S ORGANIZ ATION 04/17/2024 [facility] DATE CREATED AUTHOR AUTHOR'S ORGANIZ ATION 06/05/2024 [facility] DATE CREATED AUTHOR AUTHOR'S ORGANIZ ATION 06/26/2024 [facility] DATE CREATED AUTHOR AUTHOR'S ORGANIZ ATION 06/29/[address] [facility] REASON FOR VISIT (unrecogniz ed section and content) Reason Comments Leg Pain Left leg pain Reason Comments Pain Reason Comments Hip Pain Left, discuss FMLA n eeds Reason Onset Date Comments disability forms 12/27/2023 Goals (unrecognized section and content) Goals may be documented in a n alternate section Care Teams (unrecognized sec tion and content) Motor Winder Relationship Specialty Start Date End Date Tree Jaime MD [address] [facility] [place], [place] [id number] PCP - General Pediatrics 12/29/20 Motor Winder Relationship Specialty Start Date End Date Tree Jaime MD [address] [place] [address], [address] [place] [address] PCP - General Pediatrics 12/29/20 Motor Winder Relationship Specialty Start Date End Date Tree Jaime MD [address] [place] [address], [address] [place] [address] PCP - General Pediatrics 12/29/20 Motor Winder Relationship Specialty Start Date End Date Tree Jaime MD [address] [place] [address], [address] [place] [address] PCP - General Family Medicine 11/01/23 Motor Winder Relationship Specialty Start Date End Date Tree Jaime MD [address] [place] [address], [address] [place] [address] PCP - General Pediatrics 12/29/20 Motor Winder Relationship Specialty Start Date End Date Tree Jaime MD [address] [place] [address], [address] [place] [address] PCP - General Pediatrics 12/29/20 Motor Winder Relationship Specialty Start Date End Date Tree Jaime MD [address] [place] [address], [address] [place] [id number] PCP - General Pediatrics 12/29/20 FOR RECORDS PERTAINING TO PATIENTS WHO ARE OR HAVE BEEN ENROLLED IN A CHEMICAL DEPENDENCY/SUBSTANCEABUSE PROGRAM, SOME INFORMATION MAY BE OMITTED. This clinical summary was aggregated from multiple sources. Caution should be exercised in using it in the provision of clinical care. This summary normalizes information from multiple sources, and as a consequence, information in this document may materially change the coding, format and clinical context of patient data. In addition, data may be omitted in some cases. CLINICAL DECISIONS SHOULD BE BASED ON THE PRIMARY CLINICAL RECORDS. [facility] [employer] [facility]. provides no warranty or guarantee of the accuracy or completeness of information in this document.
[2024-07-02 14:16] LABS: Alanine Aminotransferase 26 U/L (14-59); Albumin Globulin Ratio 0.9; Albumin Level 3.2 g/dL (3.4-5.0); Alkaline Phosphatase 99 U/L (46-116); Anion Gap 14.3; Aspartate Amino Transferase 21 U/L (15-37); BUN Creatinine Ratio 18.5; Bilirubin Total 0.2 mg/dL (0.2-1.0); Calcium 9.3 mg/dL (8.5-10.1); Chloride 103 mmol/L (98-107); Estimated GFR (African America >60 (>=60 mL/min/1.73m^2); Estimated GFR (Non-African Ame >60 (>=60 mL/min/1.73m^2); Globulin 3.5 g/dL; Glucose 85 mg/dL (74-106); Potassium 4.3 mmol/L (3.5-5.1); Sodium 138 mmol/L (136-145); Total Protein 6.7 g/dL (6.4-8.2)
== END 2024-07-02 11:53 | disposition home or self-care (01) ==
LOC: LAB 11:52
PROVIDERS: PCP Internal Medicine
DX: T84.52XA Infection and inflammatory reaction due to internal left hip prosthesis, initial encounter (principal)
CPT/HCPCS: 36415; 80053; 85025; 85652; 86140

== ENCOUNTER 2024-07-09 11:30 | Outpatient (REF) | payer OTHER, SELFPAY ==
--- OUTSIDE RECORDS SUMMARY | 2024-07-09 11:37 | XMS_ITS | CCD ---
Author Organization [facility] CliniSyal Care Team Providers Care Aerial Photographer Name Role Phone KODAK, DR RAMOS Admitting [...] Provider Tree Jaime MD Primary Care Provider [phone] MICHAELA MA Attending Unavailable TREE JAIME Referring Unavailable TREE JAIME Attending Unavailable TREE JAIME Referring Unavailable TREE JAIME Primary Care Unavailable TREE JAIME Attending Unavailable TREE JAIME Referring Unavailable TREE JAIME Primary Care Unavailable TREE JAIME Attending Unavailable TREE JAIME Referring Unavailable TREE JAIME Primary Care Unavailable ANGUS BROOKE Referring Unavailable Unavailable, Physician Primary Care Unavailab Angus [...] Care Unavailab Angus Cohen MD Attending Unavailable YONI VILLELA Referring Unavailable PAESTTREE MEYERS Primary Care Unavailable YONI VILLELA Referring Unavailable TREE JAIME Primary Care Unavailable ADDISON, TREE Aguilar Attending Unavailable TREE JAIME Referring Unavailable ADDISON, TREE Aguilar Primary Care Unavailable YONI VILLELA Referring Unavailable ADDISON, TREE Aguilar Primary Care Unavailable ANGUS BROOKE Referring Unavailab TREE Montenegro Primary Care Unavailable YONI VILLELA Referring Unavailable TREE JAIME Primary Care Unavailable TREE JAIME Attending Unavailable TREE JAIME Referring Unavailable TREE JAIME Primary Care Unavailable Medications Current Medications Medication Drug Class(es) [...] 100 mg oral tablet (8 sources) beta-Adrenergic Neerida Start: 08-09-2023 take 1 tablet by mouth [...] (Therapy completed) take 4 tablets by mo [facility] every twenty-four hours Aleve 220 MG 4 [...] Sed rate was 10 on the at [place] 77 on the at [place]. CBC and liver and kidney numbers looked okay both weeks. [1] Infectious Disease Office Visit Note; Edwardo DESHPANDE, Angus Lucas 06/14/2024 15:31 EDT Electronically signed by Angus Brooke MD 06/28/24 15:02 EDT Normal [facility] Provider Letteron 06-28-2024 Provider Letter Yoni Villela M.D. [address] [place] [address] [address] [place] [address] Re: Rain Pollard Date of Visit: 06/28/[address] Villela, Thank you for your referral to my office. Attached you will find the most recent office visit note. Please call if you have any questions or concerns. Sincerely, Angus Brooke MD [address] [facility], [address] [place] [address] The following document(s) were included in the letter: June 28, 2024 14:58:30 EDT - (06/28/2024) Infectious Disease Office Visit Note Normal [facility] CBC AND AUTO DIFFon 06-25-20 ABSOLUTE BASOPHIL 0.1 X10E9/L Normal 0.0-0.2 [facility] Comment on above: Performed By: #### Melissa BCA, CMP, 1990-01 #### [facility] ([id number]) [address] [place] [address] 07284 #### [id number] #### [facility] ([id number]) [address], [address] [place] [address] ABSOLUTE NEUTROPHIL 4.0 X10E9/L Normal 1.5-6.6 [facility] Comment on above: Performed By: #### C BCA, CMP, 1988-01 #### [facility] ([id number]) [address] [place] [address] 23577 #### 05333-5 #### [facility] ([id number]) [address], [address] [place] [address] Basophils/100 WBC (Bld) 1.1 % Normal [facility] Comment on above: Performed By: #### Melissa BCA, CMP, 1990-01 #### [facility] ([id number]) [address] [place] [address] 48687 #### [id number] #### [facility] ([id number]) [address], [address] [place] [address] Eosinophils (Bld) [#/Vol] 0.1 10*3/uL Normal 0.0-0.4 [facility] Comment on above: Performed By: #### Melissa BCA, CMP, 1990-01 #### [facility] ([id number]) [address] [place] [address] 28482 #### [id number] #### [facility] ([id number]) [address] [place] [address] Eosinophils/100 WBC (Bld) 2.2 % Normal [facility] Comment on above: Performed By: #### Melissa TRINIDAD CMP, 1988-01 #### [facility] ([id number]) [address] [place] [address] 98450 #### [id number] #### [facility] ([id number]) [address] [facility] [place] [address] Erythrocyte distribution width (RBC) [Ratio] 14.4 % Normal 11.5-15.0 [facility] Comment on above: Performed By: #### Melissa TRINIDAD [facility], 1990-01 #### [facility] ([id number]) [address] [place] [address] 03396 #### [id number] #### [facility] ([id number]) [address] [facility] [place] [address] Hematocrit (Bld) [Volume fraction] 38.2 % Normal 35-47 [facility] Comment on above: Performed By: #### Melissa TRINIDAD CMP, 1988-01 #### [facility] ([id number]) [address] [place] [address] 27415 #### [id number] #### [facility] ([id number]) [address] [facility] [place] [address] Hemoglobin (Bld) [Mass/Vol] 12.3 g/dL Normal 11.7-15.5 [facility] Comment on above: Performed By: #### Melissa TRINIDAD CMP, 1990-01 #### [facility] ([id number]) [address] [place] [address] 87556 #### [id number] #### [facility] ([id number]) [address], [address] [place] [address] Lymphocytes (Bld) [#/Vol] 1.5 10*3/uL Normal 1.0-3.5 [facility] Comment on above: Performed By: #### Melissa TRINIDAD CMP, 1988-01 #### [facility] ([id number]) [address] [place] [address] 16018 #### [id number] #### [facility] ([id number]) [address], [address] [place] [address] Lymphocytes/100 WBC (Bld) 22.9 % Normal [facility] Comment on above: Performed By: #### Melissa TRINIDAD CMP, 1988-01 #### [facility] ([id number]) [address] [place] [address] 93152 #### [id number] #### [facility] ([id number]) [address] [facility] [place] [address] MCH (RBC) [Entitic mass] 27.1 pg Normal 27-34 [facility] Comment on above: Performed By: #### Melissa TRINIDAD CMP, 1988-01 #### [facility] ([id number]) [address] [place] [address] 16862 #### 39991-7 #### [facility] ([id number]) [address] [facility] [place] [address] MCHC (RBC) [Mass/Vol] 32.2 g/dL Normal 32-36 [facility] Comment on above: Performed By: #### Melissa TRINIDAD CMP, 1988-01 #### [facility] ([id number]) [address] [place] [address] 59857 #### 98186-9 #### [facility] ([id number]) [address] [place] [address] MCV (RBC) [Entitic vol] 84 fL Normal 80-100 [facility] Comment on above: Performed By: #### Melissa TRINIDAD CMP, 1990-01 #### [facility] ([id number]) [address] [place] [address] 67400 #### 00756-9 #### [facility] ([id number]) [address] [facility] [place] [address] Monocytes (Bld) [#/Vol] 0.7 10*3/uL Normal 0-0.9 [facility] Comment on above: Performed By: #### Melissa TRINIDAD CMP, 1988-01 #### [facility] ([id number]) [address] [place] [address] 90552 #### [id number] #### [facility] ([id number]) [address] [facility] [place] [address] Monocytes/100 WBC (Bld) 11.6 % Normal [facility] Comment on above: Performed By: #### Melissa TRINIDAD CMP, 1990-01 #### [facility] ([id number]) [address] [place] [address] 93142 #### 08176-5 #### [facility] ([id number]) [address] [facility] [place] [address] Neutrophils/100 WBC (Bld) 62.2 % Normal [facility] Comment on above: Performed By: #### Melissa TRINIDAD CMP, 1988-01 #### [facility] ([id number]) [address] [place] [address] 08567 #### 70214-5 #### [facility] ([id number]) [address] [place] [address] Platelet mean volume (Bld) [Entitic vol] 9.0 fL Normal 7-12 [facility] Comment on above: Performed By: #### Melissa TRINIDAD CMP, 1988-01 #### [facility] ([id number]) [address] [place] [address] 90490 #### 37869-3 #### [facility] ([id number]) [address] [facility] [place] [address] Platelets (Bld) [#/Vol] 431 10*3/uL Normal 150-450 [facility] Comment on above: Performed By: #### Melissa TRINIDAD CMP, 1988-01 #### [facility] ([id number]) [address] [place] [address] 53733 #### 29462-4 #### [facility] ([id number]) [address] [facility] [place] [address] RBC COUNT 4.53 X10E12/L Normal 3.80-5.20 [facility] Comment on above: Performed By: #### Melissa TRINIDAD CMP, 1988-01 #### [facility] ([id number]) [address] [place] [address] 51382 #### 57962-2 #### [facility] ([id number]) [address] [facility], [address] [place] [address] WBC (Bld) [#/Vol] 6.4 10*3/uL Normal 4.0-11.0 [facility] Comment on above: Performed By: #### Melissa TRINIDAD CMP, 1988-01 #### [facility] ([id number]) [address] [place] [address] 49031 #### 47392-2 #### [facility] ([id number]) [address] [facility] [place] [address] COMPREHENSIVE METABOLIC PANE Jaxson 06-25-2024 Albumin [Mass/Vol] 3.5 g/dL Normal 3.2-5.3 [facility] Comment on above: Performed By: #### Melissa TRINIDAD CMP, 1988-01 #### [facility] ([id number]) [address] [place] [address] 55028 #### 18955-9 #### [facility] ([id number]) [address] [place] [address] ALP [Catalytic activity/Vol] 89 U/L Normal 39-130 [facility] Comment on above: Performed By: #### Melissa TRINIDAD CMP, 1988-01 #### [facility] ([id number]) [address] [place] [address] 33282 #### 57252-2 #### [facility] ([id number]) [address], [address] [place] [address] ALT [Catalytic activity/Vol] 25 U/L Normal 0-31 [facility] Comment on above: Performed By: #### Melissa TRINIDAD CMP, 1988-01 #### [facility] ([id number]) [address] [place] [address] 79386 #### 13451-4 #### [facility] ([id number]) [address] [place] [address] Anion gap [Moles/Vol] 8 mmol/L Normal 5-15 [facility] Comment on above: Performed By: #### Melissa TRINIDAD CMP, 1988-01 #### [facility] ([id number]) [address] [place] [address] 26745 #### 74871-0 #### [facility] ([id number]) [address] [place] [address] AST [Catalytic activity/Vol] 27 U/L Normal 0-41 [facility] Comment on above: Performed By: #### Melissa TRINIDAD CMP, 1988-01 #### [facility] ([id number]) [address] [place] [address] 79973 #### 54016-9 #### [facility] ([id number]) [address] [place] [address] Bilirubin [Mass/Vol] 0.3 mg/dL Normal 0.3-1.2 [facility] Comment on above: Performed By: #### Melissa TRINIDAD [facility], 1988-01 #### [facility] ([id number]) [address] [place] [address] 76013 #### 44975-4 #### [facility] ([id number]) [address] [place] [address] Calcium [Mass/Vol] 9.0 mg/dL Normal 8.5-10.5 [facility] Comment on above: Performed By: #### Melissa TRINIDAD [facility], 1988-01 #### [facility] ([id number]) [address] [place] [address] 01990 #### 00169-0 #### [facility] ([id number]) [address] [place] [address] Chloride [Moles/Vol] 104 mmol/L Normal 98-109 [facility] Comment on above: Performed By: #### Melissa TRINIDAD [facility], 1988-01 #### [facility] ([id number]) [address] [place] [address] 22857 #### 26848-0 #### [facility] ([id number]) [address] [place] [address] CO2 [Moles/Vol] 26 mmol/L Normal 22-32 [facility] Comment on above: Performed By: #### Melissa TRINIDAD [facility], 1988-01 #### [facility] ([id number]) [address] [place] [address] 55516 #### 06104-8 #### [facility] ([id number]) [address] [place] [address] Creatinine [Mass/Vol] 0.42 mg/dL Normal 0.40-1.00 [facility] Comment on above: Result Comment: METH OD TRACEABLE TO IDMS STANDARD Performed By: #### C FOSTER TRINIDAD, 1990-01 #### [facility] ([id number]) [address] [place] [address] 83597 #### 99102-9 #### [facility] ([id number]) [address] [place] [address] eGFR (CKD-EPI) NON-RACE DEPENDENT >90 Normal >59 [facility] Comment on above: Result Comment: Reported eGFR is based on the CKD-EPI 2020 equation that does not use a race coefficient. Performed By: #### Melissa TRINIDAD CMP, 1988-01 #### [facility] ([id number]) [address] [place] [address] 12119 #### 47421-5 #### [facility] ([id number]) [address] [place] [address] Glucose [Mass/Vol] 76 mg/dL Normal 65-99 [facility] Comment on above: Performed By: #### Melissa TRINIDAD CMP, 1990-01 #### [facility] ([id number]) [address] [place] [address] 14912 #### 02543-9 #### [facility] ([id number]) [address] [place] [address] Potassium [Moles/Vol] 3.9 mmol/L Normal 3.5-5.0 [facility] Comment on above: Performed By: #### Melissa TRINIDAD CMP, 1990-01 #### [facility] ([id number]) [address] [place] [address] 04931 #### 51817-6 #### [facility] ([id number]) [address] [place] [address] Protein [Mass/Vol] 7.2 g/dL Normal 6.0-8.0 [facility] Comment on above: Performed By: #### C AMOS, CMP, 1990-01 #### [facility] ([id number]) [address] [place] [address] 46463 #### 47762-8 #### [facility] ([id number]) [address] [place] [address] Sodium [Moles/Vol] 138 mmol/L Normal 134-146 [facility] Comment on above: Performed By: #### C BCA, CMP, 1988-01 #### [facility] ([id number]) [address] [place] [address] 55908 #### 57964-3 #### [facility] ([id number]) [address] [place] [address] Urea nitrogen [Mass/Vol] 16 mg/dL Normal 5-23 [facility] Comment on above: Performed By: #### C AMOS, CMP, 1990-01 #### [facility] ([id number]) [address] [place] [address] 03234 #### 97325-8 #### [facility] ([id number]) [address] [place] [address] CRP [Mass/Vol]on 06-25-2024 C REACTIVE PROTEIN 0.8 mg/dL High 0.000-0.744 [facility] Comment on above: Performed By: #### C BCA, CMP, 1988-01 #### [facility] ([id number]) [address] [place] [address] 84280 #### 54113-4 #### [facility] ([id number]) [address] [place] [address] ESR Photometric method (Bld) [Velocity]on 06-25-2024 ESR, ERYTHROCYTE SEDIMENTATION RATE 77 mm/h High 0-30 [facility] Comment on above: Performed By: #### C AMOS, [facility], 1987- #### [facility] ([id number]) [address] [facility], [place] [address] #### 11393-6 #### [facility] ([id number]) [address] [facility] [place] [address] Infectious Disease Office/Cl inic Noteon 06-14-2024 Infectious [...] Angus Brooke MD 06/14/24 15:46 EDT Normal [facility] Provider Letteron 06-14-2024 Provider Letter Tree Jaime M.D. [address] [place] [address] Re: Rain Pollard Date of Visit: 06/14/[address] Jaime, Thank you for your referral to my office. Attached you will find the most recent office visit note. Please call if you have any questions or concerns. Sincerely, Angus Brooke MD [address] [place] [address], [address] [place] [address] The following document(s) were included in the letter: June 14, 2024 15:31:34 EDT - (06/14/2024) Infectious Disease Office Visit Note Normal [facility] C-Reactive Proteinon 024 CRP [Mass/Vol] 5.4 mg/L High 0.0-5.0 [facility] Comment on above: Performed By: #### C RP, CP, SED, CBC #### [facility] [address] [place] [address] Uniform Attendant: Paul Jones MD CBCon 06-04-2024 Erythrocyte distribution width (RBC) [Ratio] 14.1 % Normal 11.8-14.4 [facility] Comment on above: Performed By: #### C RP, CP, SED, CBC #### [address] [place], [place] [address] Uniform Attendant: Paul Jones MD Hematocrit (Bld) [Volume fraction] 38.1 % Normal 36.3-47.1 [facility] Comment on above: Performed By: #### C RP, CP, SED, CBC #### [address] [place], [place] [address] Uniform Attendant: Paul Jones MD Hemoglobin (Bld) [Mass/Vol] 11.7 g/dL Low 11.9-15.1 [facility] Comment on above: Performed By: #### C RP, CP, SED, CBC #### [address] [place], [place] [address] Uniform Attendant: Paul Jones MD MCH (RBC) [Entitic mass] 28.0 pg Normal 25.2-33.5 [facility] Comment on above: Performed By: #### C RP, CP, SED, CBC #### [address] [place] [address] Uniform Attendant: Paul Jones MD MCHC (RBC) [Mass/Vol] 30.7 g/dL Normal 28.4-34.8 [facility] Comment on above: Performed By: #### C RP, CP, SED, CBC #### [address] [place], [place] [address] Uniform Attendant: Paul Jones MD MCV (RBC) [Entitic vol] 91.1 fL Normal 82.6-102.9 [facility] Comment on above: Performed By: #### C RP, CP, SED, CBC #### [address] [place] [address] Uniform Attendant: Paul Jones MD NRBC Automated 0.0 per 100 WBC Normal 0.0 [facility] Comment on above: Performed By: #### C RP, CP, SED, CBC #### [address] [place] [address] Uniform Attendant: Paul Jones MD Platelet mean volume (Bld) [Entitic vol] 11.4 fL Normal 8.1-13.5 [facility] Comment on above: Performed By: #### C RP, CP, SED, CBC #### [address] [place] [address] Uniform Attendant: Paul Jones MD Platelets (Bld) [#/Vol] 380 10*3/uL Normal 138-453 [facility] Comment on above: Performed By: #### C RP, CP, SED, CBC #### [address] [place] [address] Uniform Attendant: Palu Jones MD RBC (Bld) [#/Vol] 4.18 10*6/uL Normal 3.95-5.11 [facility] Comment on above: Performed By: #### C RP, CP, SED, CBC #### [address] [place] [address] Uniform Attendant: Paul Jones MD WBC (Bld) [#/Vol] 6.4 10*3/uL Normal 3.5-11.3 [facility] Comment on above: Performed By: #### C RP, CP, SED, CBC #### [address] [place] [address] Uniform Attendant: Paul Jones MD Comp Metabolic Profon 2023 Albumin [Mass/Vol] 4.0 g/dL Normal 3.5-5.2 [facility] Comment on above: Performed By: #### C RP, CP, SED, CBC #### [facility] [address] [place], [place] [address] Uniform Attendant: Paul Jones MD Albumin/Glob Ratio 1.3 Normal 1.0-2.5 [facility] Comment on above: Performed By: #### C RP, CP, SED, CBC #### [facility] [address] [place], [place] 2074[address] Uniform Attendant: Paul Jones MD Alkaline Phos 96 U/L Normal 35-104 [facility] Comment on above: Performed By: #### C RP, CP, SED, CBC #### [facility] [address] [place], [place] [address] Uniform Attendant: Paul Jones MD ALT [Catalytic activity/Vol] 12 U/L Normal 10-35 [facility] Comment on above: Performed By: #### C RP, CP, SED, CBC #### [facility] [address] [place], [place] 58[address] Uniform Attendant: Paul Jones MD Anion gap [Moles/Vol] 13 mmol/L Normal 9-16 [facility] Comment on above: Performed By: #### C RP, CP, SED, CBC #### [facility] [address] [place], [place] [address] Uniform Attendant: aPul Jones MD AST [Catalytic activity/Vol] 21 U/L Normal 10-35 [facility] Comment on above: Performed By: #### C RP, CP, SED, CBC #### [facility] [address] [place], [place] 67[address] Uniform Attendant: Paul Jones MD Bilirubin [Mass/Vol] mg/dL Normal 0.00-1.20 [facility] Comment on above: Performed By: #### C RP, CP, SED, CBC #### [facility] [address] [place], [place] 07[address] Uniform Attendant: Paul Jones MD BUN/CRE Ratio 18 Normal 9-20 [facility] Comment on above: Performed By: #### C RP, CP, SED, CBC #### [facility] [address] [place] [address] Uniform Attendant: Paul Jones MD Calcium [Mass/Vol] 9.7 mg/dL Normal 8.6-10.4 [facility] Comment on above: Performed By: #### C RP, CP, SED, CBC #### [facility] [address] [place] [address] Uniform Attendant: Paul Jones MD Chloride [Moles/Vol] 104 mmol/L Normal 98-107 [facility] Comment on above: Performed By: #### C RP, CP, SED, CBC #### [facility] [address] [place] [address] Uniform Attendant: Paul Jones MD CO2 [Moles/Vol] 24 mmol/L Normal 20-31 [facility] Comment on above: Performed By: #### C RP, CP, SED, CBC #### [facility] [address] [place] [address] Uniform Attendant: Paul Jones MD Creatinine [Mass/Vol] 0.6 mg/dL Normal 0.50-0.90 [facility] Comment on above: Performed By: #### C RP, CP, SED, CBC #### [facility] [address] [place] [address] Uniform Attendant: Paul Jones MD GFR/1.73 sq M.predicted among non-blacks MDRD (S/P/Bld) [Vol rate/Area] mL/min/{1.73_m2} Normal >60 [facility] Comment on above: Result Comment: These [...] #### C RP, CP, SED, CBC #### [address] [place], [place] [address] Uniform Attendant: Paul Jones MD Glucose [Mass/Vol] 85 mg/dL Normal 74-99 [facility] Comment on above: Performed By: #### C RP, CP, SED, CBC #### [address] [place] [address] Uniform Attendant: Paul Jones MD Potassium [Moles/Vol] 3.9 mmol/L Normal 3.7-5.3 [facility] Comment on above: Performed By: #### C RP, CP, SED, CBC #### [address] [place] [address] Uniform Attendant: Paul Jones MD Protein [Mass/Vol] 6.9 g/dL Normal 6.6-8.7 [facility] Comment on above: Performed By: #### C RP, CP, SED, CBC #### [address] [place] [address] Uniform Attendant: Paul Jones MD Sodium [Moles/Vol] 141 mmol/L Normal 136-145 [facility] Comment on above: Performed By: #### C RP, CP, SED, CBC #### [address] [place] [address] Uniform Attendant: Paul Jones MD Urea nitrogen [Mass/Vol] 11 mg/dL Normal 6-20 [facility] Comment on above: Performed By: #### C RP, CP, SED, CBC #### [address] [place] [address] Uniform Attendant: Paul Jones MD Sedimentation Rateon 024 Sedimentation Rate 65 mm/Hr High 0-30 [facility] Comment on above: Performed By: #### C RP, CP, SED, CBC #### [facility] [address] [place] [address] Uniform Attendant: Paul Jones MD IR PICC Placementon 06-01-20 24 IR PICC Placement CLINICAL HISTORY: Evaluate PICC placement. REASON FOR PICC: Long-term IV antibiotics. DEVICE: 4 Scottish single lumen PICC INSERTION LOCATION: Right brachial [...] Electronically Signed in Other Vendor System) Normal [facility] Infectious Disease Office/Cl inic Noteon 05-31-2024 [...] electrolytes norm (more content not included)... Normal [facility] Provider Letteron 05-31-2024 Provider Letter Yoni Mcelroy M.D. [address] [id number] Re: Rain Pollard Date of Visit: 05/31/[address] Kofi Mcelroy, Thank you for your referral to my office. Attached you will find the most recent office visit note. Please call if you have any questions or concerns. Sincerely, Angus Brooke MD [address] [facility], [address] [place] [address] The following document(s) were included in the letter: May 31, 2024 14:56:44 EDT - (05/31/2024) Infectious Disease Office Visit Note Normal [facility] XR HIP LT 2-3 VIEWS W [...] Godinez MD on 10/27/2023 7:38 PM Normal [facility] XR Pelvis and Hip - left [...] acute fracture. IMPRESSION: Advanced osteoarthritis. Finalized by Lavno Godinez MD on 10/27/2023 7:[address] [facility] Radiology Study observation (narrative) [facility] XR Pelvis and Hip - left 2 V iewsOrdered By: Lavon Godinez on 10-27-2023 [facility] Work Phone: XR SPINE LUMBAR 2 OR 3 VWSon 10-27-2023 XR SPINE LUMBAR 2 OR 3 VWS XR SPINE LUMBAR 2 OR 3 VWS CLINICAL INFORMATION: Sciatica of left side TECHNIQUE: XR SPINE LUMBAR 2 OR 3 VWS 3 views the lumbar spine were obtained. Xocb-ij-qyqujuxb lumbar degenerative changes noted. Endplates appear intact. No acute fracture. Sacral ala unremarkable. IMPRESSION: Gkax-io-wivjdozz degenerative changes. Finalized by Lavon Godinez MD on 10/27/2023 8:16 PM Normal [facility] CBC AUTO DIFFon 08-21-2021 BASO # 0.0 103/ul Normal 0.0-0.1 [facility] Comment on above: Performed By: #### C BC #### [facility] [address] [address] [address] Frederick Hallman Basophils/100 WBC (Bld) 0.6 % Normal 0.2-2.0 [facility] Comment on above: Performed By: #### C BC #### [facility] [address] [address] [address] Frederick Hallman EO # 0.1 103/ul Normal 0.0-0.7 [facility] Comment on above: Performed By: #### C BC #### [facility] [address] [address] [address] Frederick Hallman Eosinophils/100 WBC (Bld) 1.6 % Normal 0.9-7.0 [facility] Comment on above: Performed By: #### C BC #### [facility] [address] [address] [address] Frederick Hallman Erythrocyte distribution width (RBC) [Ratio] 12.7 % Normal 11.0-15.0 [facility] Comment on above: Performed By: #### C BC #### [facility] [address] [address] [address] Frederick Hallman Hematocrit (Bld) [Volume fraction] 44.1 % Normal 36.0-48.0 [facility] Comment on above: Performed By: #### C BC #### [facility] [address] [place] [address] Dr. Frederick Hallman Hemoglobin (Bld) [Mass/Vol] 13.9 g/dL Normal 12.0-16.0 [facility] Comment on above: Performed By: #### C BC #### [facility] [address] [place] [address] Dr. Frederick Hallman IG # 0.03 10e3/ul Normal 0.00-0.03 [facility] Comment on above: Performed By: #### C BC #### [facility] [address] [place] [address] Dr. Frederick Hallman IG % 0.5 % Normal 0.0-0.5 [facility] Comment on above: Performed By: #### C BC #### [facility] [address] [place] [address] Dr. Frederick Hallman LYMPH # 1.6 103/ul Normal 1.2-3.8 [facility] Comment on above: Performed By: #### C BC #### [facility] [address] [place] [address] Dr. Frederick Hallman Lymphocytes/100 WBC (Bld) 25.5 % Normal 20.5-60.0 [facility] Comment on above: Performed By: #### C BC #### [facility] [address] [place] [address] Dr. Frederick Hallman MANUAL DIFF REQ NO Normal [facility] Comment on above: Performed By: #### C BC #### [facility] [address] [place] [address] Dr. Frederick Hallman MCH (RBC) [Entitic mass] 29.1 pg Normal 26.7-34.0 [facility] Comment on above: Performed By: #### C BC #### [facility] [address] [place] [address] Dr. Frederick Hallman MCHC (RBC) [Mass/Vol] 31.5 g/dL Normal 29.9-35.2 [facility] Comment on above: Performed By: #### C BC #### [facility] [address] [place] [address] Dr. Frederick Hallman MCV (RBC) [Entitic vol] 92.5 fL Normal 81.0-99.0 [facility] Comment on above: Performed By: #### C BC #### [facility] [address] [place] [address] Dr. Frederick Hallman MONO # 0.5 103/ul Normal 0.3-0.8 [facility] Comment on above: Performed By: #### C BC #### [facility] [address] [place] [address] Dr. Frederick Hallman Monocytes/100 WBC (Bld) 8.2 % Normal 1.7-12.0 [facility] Comment on above: Performed By: #### C BC #### [facility] [address] [place] [address] Dr. Frederick Hallman NEUT # 3.9 103/ul Normal 1.4-6.5 [facility] Comment on above: Performed By: #### C BC #### [facility] [address] [place] [address] Dr. Frederick Hallman Neutrophils/100 WBC (Bld) 63.6 % Normal 43.0-75.0 [facility] Comment on above: Performed By: #### C BC #### [facility] [address] [place] [address] Dr. Frederick Hallman Platelet mean volume (Bld) [Entitic vol] 10.2 fL Normal 9.5-13.5 [facility] Comment on above: Performed By: #### C BC #### [facility] [address] [place] [address] Dr. Frederick Hallman PLT 248 103/ul Normal 150-450 [facility] Comment on above: Performed By: #### C BC #### [facility] [address] [place] [address] Dr. Frederick Hallman RBC 4.77 106/ul Normal 4.20-5.40 [facility] Comment on above: Performed By: #### C BC #### [facility] [address] [place] [address] Dr. Frederick Hallman WBC 6.2 103/ul Normal 4.0-11.0 [facility] Comment on above: Performed By: #### C BC #### [facility] [address] [address] [address] Frederick Hallman PREG QUANT HCGon 08-21-2021 HCG QUANT <1 Normal [facility] Comment on above: Performed By: #### P REGQNT #### [facility] [address] [address] [address] Frederick Hallman HCG RANGE SEE BELOW Normal [facility] Comment on above: Result Comment: 5-50 0-1 WEEK 40-300 1-2 WEEKS 100-1,000 2-3 WEEKS 500-6,000 3-4 WEEKS 5,000-200,000 1-2 MONTHS 10,000-100,000 2-3 MONTHS 3,000-50,000 2ND TRIMESTER 1,000-50,000 3RD TRIMESTER Performed By: #### P REGQNT #### [facility] [address] [address] [address] Frederick Hallman Covid-19 PCR (CVDTBH)on 07-28 SARS-CoV-2 (COVID-19) RNA ZBIGNIEW+probe Ql (Unsp spec) Not detected Normal NOT DETECTED [facility] Comment on above: Result Comment: This test is not yet approved or cleared by the [place] FDA. When there are no FDA-approved or cleared tests available, and other criteria are met, FDA can make tests available under an emergency access mechanism called an Emergency Use Authorization (EUA). The EUA for this test is supported by the of Health and Human Service's (HHS's) declaration [...] SARS-CoV-2. Performed By: #### C VDTBH #### [facility] [address] [place] [address] Dr. Frederick Hallman US PELVIS AND TRANSVAGon [...] PAUL MCGREGOR Date: 2021-06-18 08:08 Normal [facility] CBC AUTO DIFFon 06-17-2021 BASO # 0.1 103/ul Normal 0.0-0.1 [facility] Comment on above: Performed By: #### C BC #### [facility] [address] [place] [address] Dr. Frederick Hallman Basophils/100 WBC (Bld) 0.9 % Normal 0.2-2.0 [facility] Comment on above: Performed By: #### C BC #### [facility] [address] [place] [address] Dr. Frederick Hallman EO # 0.1 103/ul Normal 0.0-0.7 [facility] Comment on above: Performed By: #### C BC #### [facility] [address] [place] [address] Dr. Frederick Hallman Eosinophils/100 WBC (Bld) 1.7 % Normal 0.9-7.0 [facility] Comment on above: Performed By: #### C BC #### [facility] [address] [place] [address] Dr. Frederick Hallman Erythrocyte distribution width (RBC) [Ratio] 13.2 % Normal 11.0-15.0 [facility] Comment on above: Performed By: #### C BC #### [facility] [address] [place] [address] Dr. Frederick Hallman Hematocrit (Bld) [Volume fraction] 43.0 % Normal 36.0-48.0 [facility] Comment on above: Performed By: #### C BC #### [facility] [address] [place] [address] Dr. Frederick Hallman Hemoglobin (Bld) [Mass/Vol] 13.4 g/dL Normal 12.0-16.0 [facility] Comment on above: Performed By: #### C BC #### [facility] [address] [place] [address] Dr. Frederick Hallman IG # 0.03 10e3/ul Normal 0.00-0.03 [facility] Comment on above: Performed By: #### C BC #### [facility] [address] [place] [address] Dr. Frederick Hallman IG % 0.4 % Normal 0.0-0.5 [facility] Comment on above: Performed By: #### C BC #### [facility] [address] [place] [address] Dr. Frederick Hallman LYMPH # 1.9 103/ul Normal 1.2-3.8 [facility] Comment on above: Performed By: #### C BC #### [facility] [address] [place] [address] Dr. Frederick Hallman Lymphocytes/100 WBC (Bld) 23.5 % Normal 20.5-60.0 [facility] Comment on above: Performed By: #### C BC #### [facility] [address] [place] [address] Dr. Frederick Hallman MANUAL DIFF REQ NO Normal [facility] Comment on above: Performed By: #### C BC #### [facility] [address] [place] [address] Dr. Frederick Hallman MCH (RBC) [Entitic mass] 29.2 pg Normal 26.7-34.0 [facility] Comment on above: Performed By: #### C BC #### [facility] [address] [address] [address] Frederick Hallman MCHC (RBC) [Mass/Vol] 31.2 g/dL Normal 29.9-35.2 [facility] Comment on above: Performed By: #### C BC #### [facility] [address] [place] [address] Dr. Frederick Hallman MCV (RBC) [Entitic vol] 93.7 fL Normal 81.0-99.0 [facility] Comment on above: Performed By: #### C BC #### [facility] [address] [place] [address] Dr. Frederick Hallman MONO # 0.8 103/ul Normal 0.3-0.8 [facility] Comment on above: Performed By: #### C BC #### [facility] [address] [place] [address] Dr. Frederick Hallman Monocytes/100 WBC (Bld) 9.8 % Normal 1.7-12.0 [facility] Comment on above: Performed By: #### C BC #### [facility] [address] [place] [address] Dr. Frederick Hallman NEUT # 5.2 103/ul Normal 1.4-6.5 [facility] Comment on above: Performed By: #### C BC #### [facility] [address] [place] [address] Dr. Frederick Hallman Neutrophils/100 WBC (Bld) 63.7 % Normal 43.0-75.0 [facility] Comment on above: Performed By: #### C BC #### [facility] [address] [place] [address] Dr. Frederick Hallman Platelet mean volume (Bld) [Entitic vol] 10.3 fL Normal 9.5-13.5 [facility] Comment on above: Performed By: #### C BC #### [facility] [address] [place] [address] Dr. Frederick Hallman PLT 256 103/ul Normal 150-450 [facility] Comment on above: Performed By: #### C BC #### [facility] [address] [address] [address] Frederick Hallman RBC 4.59 106/ul Normal 4.20-5.40 [facility] Comment on above: Performed By: #### C BC #### [facility] [address] [address] [address] Frederick Hallman WBC 8.1 103/ul Normal 4.0-11.0 [facility] Comment on above: Performed By: #### C BC #### [facility] [address] [address] [address] Frederick Hallman PREG QUANT HCGon 06-17-2021 HCG QUANT <1 Normal [facility] Comment on above: Performed By: #### T SH, PREGQNT #### [facility] [address] [place] [address] Dr. Frederick Hallman HCG RANGE SEE BELOW Normal [facility] Comment on above: Result Comment: 5-50 0-1 WEEK 40-300 1-2 WEEKS 100-1,000 2-3 WEEKS 500-6,000 3-4 WEEKS 5,000-200,000 1-2 MONTHS 10,000-100,000 2-3 MONTHS 3,000-50,000 2ND TRIMESTER 1,000-50,000 3RD TRIMESTER Performed By: #### T SH, PREGQNT #### [facility] [address] [place] [address] Dr. Frederick Hallman PROTIMEon 06-17-2021 INR Coag (PPP) [Relative time] 0.95 {INR} Normal [facility] Comment on above: Performed By: #### P T, PTT #### [facility] [address] [place] [address] Dr. Frederick Hallman INR GUIDELINES SEE BELOW Normal [facility] Comment on above: Result Comment: MAEVE RED INR: 2.0 - 3.0 CONDITIONS NOT LISTED BELOW 2.5 - 3.5 FOR PROSTHETIC HEART VALVE REPLACEMENT 2.5 - 3.5 RECURRENT THROMBOSIS Performed By: #### P T, PTT #### [facility] [address] [place] [address] Dr. Frederick Hallman PT Coag (PPP) [Time] 10.3 s Normal 9.0-11.6 [facility] Comment on above: Performed By: #### P T, PTT #### [facility] [address] [place] [address] Dr. Frederick Hallman PTTon 06-17-2021 aPTT Coag (Bld) [Time] 25.8 s Normal 22.3-36.2 [facility] Comment on above: Performed By: #### P T, PTT #### [facility] [address] [place] [address] Dr. Frederick Hallman TSHon 06-17-2021 TSH 1.799 uIU/mL Normal 0.470-4.680 [facility] Comment on above: Performed By: #### T SH, PREGQNT #### [facility] [address] [place] [address] Dr. Frederick Hallman TSH RANGE SEE BELOW Normal [facility] Comment on above: Result Comment: <0.3 4 UIU/ml HYPERTHYROID 0.34-5.60 UIU/ml EUTHYROID >5.60 UIU/ml HYPOTHYROID Performed By: #### T SH, PREGQNT #### [facility] [address] [place] [address] Dr. Frederick Hallman Vital Signs Date Time Vital Sign Value Performing Clinician Facility 12-19-2023 15:22-0400 Body mass index (BMI) [Ratio] 47.76 kg/m2 Tree Jaime MD Work Phone: [facility] 12-19-2023 15:22-0400 Body weight 130.18 kg Tree Jaime MD Work Phone: [facility] 12-19-2023 15:22-0400 Diastolic blood pressure 84 mm[Hg] Tree Jaime MD Work Phone: [facility] 12-19-2023 15:22-0400 Heart rate 76 /min Tree Jaime MD Work Phone: [facility] 12-19-2023 15:22-0400 Systolic blood pressure 149 mm[Hg] Tree Jaime MD Work Phone: [facility] [employer] [facility] 11-01-2023 14:48-0500 Body height 162.6 cm Michaela Ma NP Work Phone: [facility] 11-01-2023 14:48-0500 Body mass index (BMI) [Ratio] 54.07 kg/m2 Michaela Ma GROOVER OPERATOR Work Phone: [facility] 11-01-2023 14:48-0500 Body weight 142.88 kg Michaela Ma GROOVER OPERATOR Work Phone: [facility] 10-21-2023 15:03-0500 Body mass index (BMI) [Ratio] 52.42 kg/m2 Tree Jaime MD Work Phone: [facility] [employer] [facility] 10-21-2023 15:03-0500 Body weight 142.88 kg Tree Jaime MD Work Phone: [facility] 10-21-2023 15:03-0500 Diastolic blood pressure 90 mm[Hg] Tree Jaime MD Work Phone: [facility] [email or web address] 10-21-2023 15:03-0500 Heart rate 92 /min Tree Jaime MD Work Phone: [facility] [email or web address] 10-21-2023 15:03-0500 Systolic blood pressure 171 mm[Hg] Tree Jaime MD Work Phone: [facility] [email or web address] 09-29-2022 16:45-0500 Body height 160.66 cm Tay Tucker Other [employer] Other 09-29-2022 16:45-0500 Body mass index (BMI) [Ratio] 59.9 kg/m2 Tay Tucker Other [facility] [employer] Other 09-29-2022 16:45-0500 Body weight 154.63 kg Tay Tucker Other [facility] Other 09-29-2022 16:45-0500 Diastolic blood pressure 89 mm[Hg] Tay Scottdiff Other [employer] Other 09-29-2022 16:45-0500 Respiratory rate 18 /min Tay Scottdiff Other [employer] Other 09-29-2022 16:45-0500 SaO2% (BldA) [Mass fraction] 98 % Tay Scottdiff Other [facility] [employer] Other 09-29-2022 16:45-0500 Systolic blood pressure 132 mm[Hg] Tay Scottdiff Other [facility] Other 09-23-2022 15:00-0500 Body height 160.66 cm Chapis Saldana Other [facility] [employer] Other 08-09-2022 15:30-0500 Body height 160.66 cm Tay Tucker Other [facility] Other 08-09-2022 15:30-0500 Body mass index (BMI) [Ratio] 62.15 kg/m2 Tay Scottdiff Other [facility] [employer] Other 08-09-2022 15:30-0500 Body weight 160.44 kg Tay Scottdiff Other [facility] [employer] Other 08-09-2022 15:30-0500 Diastolic blood pressure 109 mm[Hg] Tayluis Tucker Other [facility] [employer] Other 08-09-2022 15:30-0500 Respiratory rate 20 /min Tay Scottdiff Other [facility] [employer] Other 08-09-2022 15:30-0500 SaO2% (BldA) [Mass fraction] 99 % Tay Tucker Other [facility] [employer] Other 08-09-2022 15:30-0500 Systolic blood pressure 190 mm[Hg] Tay Tucker Other [employer] Other Encounters Encounter Date Encounter Type Care Provider Facility Start: 06-28-2024 End: 06-28-2024 ambulatory Angus Brooke MD Facility:Infectious Disease Start: 06-26-2024 ambulatory [facility] Start: 06-25-2024 End: 06-25-2024 ambulatory [facility] Start: 06-14-2024 End: 06-14-2024 ambulatory Angus Brooke MD Facility:Infectious Disease Start: 06-04-2024 End: 06-04-2024 ambulatory ANGUS BROOKE [facility] Start: 06-01-2024 End: 06-01-2024 ambulatory Physician Unavailable Facility:[facility] Start: 05-31-2024 End: 05-31-2024 ambulatory Angus Brooke MD Facility:Infectious Disease Start: 05-29-2024 ambulatory [facility] Start: 04-26-2024 End: 05-27-2024 ambulatory [facility] Start: 04-13-2024 End: 04-13-2024 ambulatory TREE Aguilar [facility] Start: 04-05-2024 End: 04-26-2024 ambulatory [facility] Start: 12-28-2023 Telephone encounter [facility] Comment on above: disability forms Start: 12-19-2023 End: 12-19-2023 Office outpatient visit 15 minutes [facility] Comment on above: Pain of left hip (Pr imary Dx) Start: 12-19-2023 End: 12-19-2023 ambulatory [facility] Start: 11-23-2023 Telephone encounter [facility] Start: 11-02-2023 Orders Only Tree miller MD Work Phone: [facility] Comment on above: Primary osteoarthrit is of left hip (Primary Dx) Start: 11-01-2023 End: 11-01-2023 ambulatory MICHAELA MA Not Available Start: 11-01-2023 End: 11-01-2023 Office outpatient new 30 minutes Michaela Ma GROOVER OPERATOR Work Phone: [facility] Comment on above: Primary osteoarthrit is of left hip (Primary Dx); Left hip pain; History of bariatric surgery Start: 10-31-2023 Telephone encounter [facility] Start: 10-27-2023 End: 10-27-2023 ambulatory [facility] Start: 10-26-2023 Telephone encounter [facility] Start: 10-21-2023 End: 10-21-2023 ambulatory [facility] Start: 10-21-2023 End: 10-21-2023 Office outpatient visit 15 minutes Tree Jaime [facility] Comment on above: Sciatica of left vasiliy e (Primary Dx) Start: 09-29-2022 End: 09-30-2022 ambulatory NON STAFF [facility] Other Start: 09-29-2022 Follow-up encounter Tay richardson [facility] Start: 09-23-2022 End: 09-23-2022 ambulatory Chapis Saldana Other [facility] Other Start: 09-23-2022 IBT FOR OBESITY GROU P 2-10 30M Chapis Saldana [facility] Start: 09-02-2022 End: 09-02-2022 ambulatory Tayluis Scottdiff Other [facility] [employer] Other Start: 09-02-2022 Telephone encounter Tay Caitlin Nimco [facility] Start: 08-31-2022 End: 08-31-2022 ambulatory Tya Caitlin Other [facility] Other Start: 08-31-2022 Telephone encounter Tay Caitlin Nimco [facility] Start: 08-09-2022 End: 08-09-2022 ambulatory Tay Scottdiff Other [facility] Other Start: 08-09-2022 Nutrition therapy Tay Prater [facility] Start: 06-28-2022 End: 06-28-2022 ambulatory Chapis Saldana Other [facility] Other Start: 06-28-2022 Telephone encounter Chapis Saldana [facility] Start: 08-27-2021 Encounter for preprocedural laboratory examination DR RACHEL CANDELARIO [facility] Start: 08-21-2021 End: 08-21-[address] RACHEL CANDELARIO Facility:[facility] Start: 08-18-2021 End: 08-19-[address] RACHEL CANDELARIO Facility:[facility] Start: 08-18-2021 End: 08-19-2021 Encounter for preprocedural laboratory examination DR RACHEL CANDELARIO Facility:[facility] Start: 08-17-2021 Encounter for other preprocedural examination DR RACHEL CANDELARIO [facility] Start: 08-12-2021 End: 08-13-[address] RACHEL [...] Adult BMI Screening Adult BMI Screen ing [facility] Start: 12-18-2024 Tobacco Screening Tobacco Screening [facility] Start: 10-21-2024 Adult BMI Screening Adult BMI Screen ing [facility] Start: 10-21-2024 Tobacco Scre[address] Tobacco Screening [facility] Start: 07-12-2024 ambulatory Ambulatory Facility:I nfectious Disease Start: 05-27-2024 Influenza vaccination Influenza Vacc ine [facility] Start: 05-15-2024 DTaP,Tdap and Td Vac cines (2 - Td or Tdap) DTaP,Tdap and Td Vaccines (2 - Td or Tdap) [facility] Start: 10-27-2023 End: 10-27-2024 XR Lumbar spine 2 or 3 Views [facility] Work Phone: Comment on above: Expected: 10/27/2023 , Expires: 10/27/2024 Start: 05-27-2023 COVID-19 Vaccine ( season) COVID-19 Vaccine ( season) [facility] Start: 05-27-2023 Influenza vaccination [facility] Start: 2023 Administration of varicella zoster vaccine Zoster (Shingles) Vaccine (1 of 2) [facility] Start: 05-21-2022 Depression Screening Depression Scre ening [facility] Start: 2013 Screening for malign ant neoplasm of breast Mammogram [facility] Start: 2003 Screening for malign ant neoplasm of cervix [facility] Start: 1994 Screening for malign ant neoplasm of cervix Pap Smear [facility] Start: 1973 Screening for malign ant neoplasm of colon [facility] Immunizations Immunization Date Immunization Notes Care Provider Fa cility 01-17-2021 COVID-19, mRNA, LNP- S, PF, 30mcg/0.3mL Dose Tree Jaime MD [facility] 12-26-2020 COVID-19, mRNA, LNP- S, PF, 30mcg/0.3mL Dose Tree Jaime MD Work Phone: [facility] 05-15-2014 tetanus toxoid, redu caitlin diphtheria toxoid, and acellular pertussis vaccine, adsorbed Tree Jaime MD Work Phone: [facility] Payers Date Payer Category Payer Private Health Insurance [id number] 2023 Private Health Insurance [id number] 2022 Private Health Insurance [id number] 2022 Self-pay 1973 Unknown [id number] 2.16.84 0.1.545230.3.579.2.593 1973 Unknown [id number] 2.16.84 0.1.174679.3.579.2.593 1973 Unknown [id number] 2.16.84 0.1.588663.3.579.2.593 1973 Unknown [id number] 2.16.84 0.1.961761.3.579.2.593 1973 Unknown [id number] 2.16.84 0.1.311358.3.579.2.1259 1973 Unknown [id number] 2.16.8 40.1.900041.3.579.2.1286 1973 Unknown [id number] 2.16.8 40.1.360943.3.579.2.1286 1973 Unknown [id number] 2.16.8 40.1.951205.3.579.2.1286 1973 Unknown [id number] 2.16.8 40.1.043444.3.579.2.173 1973 Unknown [id number] 2.16. 840.1.883056.3.579.2.196 1973 Unknown [id number] 2.16. 840.1.684731.3.579.2.196 1973 Unknown [id number] 2.16. 840.1.871103.3.579.2.196 1973 Unknown [id number] 2.16. 840.1.666055.3.579.2.196 1973 Unknown [id number] 2.16. 840.1.193202.3.579.2.196 1973 Unknown [id number] 2.16. 840.1.002397.3.579.2.196 1973 Unknown [id number] 2.16.8 40.1.681074.3.579.2.1285 1973 Unknown [id number] 2.16.8 40.1.809199.3.579.2.1285 1973 Unknown [id number] 2.16.8 40.1.170329.3.579.2.1285 1973 Unknown [id number] 2.16.8 40.1.768237.3.579.2.1285 1973 Unknown [id number] 2.16.8 40.1.586096.3.579.2.1285 1973 Unknown [id number] 2.16.8 40.1.132445.3.579.2.1285 1973 Unknown [id number] 2.16.8 40.1.545558.3.579.2.1286 1959 Private Health Insurance [id number] Unknown [id number] 2.16.8 40.1.800365.3.579.2.531 Social History Date Type Detail Facility Start: 12-29-2020 End: 10-21-2023 Sex Assigned At [facility] Start: 1975 Sex Assigned At Female [facility] Start: 08-17-2022 End: 11-01-2023 Tobacco smoking status NHIS Ex-smoker [facility] History of tobacco use Current smoker [facility] History of tobacco use Cigarette Smoker [facility] Start: 08-17-2022 End: 11-01-2023 Tobacco use and exposure Smokeless tobacco non-user [facility] Start: 10-21-2023 End: 12-19-2023 Alcohol intake Current drinker of alcohol (finding) [facility] Start: 12-29-2020 End: 10-21-[address] [facility] Adolescent depressio n screening assessment 0 [facility] Start: 05-21-2021 Alcohol Comment rarely [facility] Start: 1975 Sex Assigned At Not on file [facility] Start: 11-01-2023 Alcohol intake Ex-drinker (finding) [facility] Medical Equipment Procedure Code Equipment Code Equipment Origin al Text Equipment Identifier Dates [place] Sut 5.5mm Swivelock C Cls Eylt Vnt Bcmps Pk 19.1mm Ea=Bill Only - [id number] - [id number] Start: 11-13-2021 Clinical Notes 08-21-2021 to 12-28-2023 Telephone Encounter - Dimple Schneider [facility] - 12/28/2023 9:23 AM EDTTelephone Encounter - Dimple Schneider [facility] - 12/28/2023 9:23 AM Aimee Jaime MD - 12/19/2023 3:15 PM EDT Note Date & Type Note Facility 12-28-2023 Miscellaneous Notes Formattin g of this note might be different from the original. Called [employer] regarding patient's FMLA. We received a fax stating clarification was needed. I spoke with Bing who stated she would send a message to the case management specialist, Heavenly, to contact our office regarding the form and the confusion. I never received a call. I then received a call from patient stating she received a call from her case management specialist. The specialist stated she was unable to [...] updated forms again. [facility] 12-28-2023 Telephone encount er Note Called [employer] regarding patient's FMLA. We received a fax stating clarification was needed. I spoke with Bing who stated she would send a message to the case management specialist, Heavenly, to contact our office regarding the form and the confusion. I never received a call. I then received a call from patient stating she received a call from her case management specialist. The specialist stated she was unable to [...] will send back the updated forms again. [facility]23 History of Presen t illness Narrative [...] of left hip documented in this encounter [facility] 11-23-2023 Miscellaneous Notes Formattin g of this note might be different from the original. Patient called stating she is need her work restrictions to not go up or down stairs extended. She states she saw the new ortho physician yesterday and she is getting referred to pain management. Please advise. OK Note faxed to [employer] documented in this encounter [facility] 11-23-2023 Telephone encount er Note Patient called stating she is need her work restrictions to not go up or down stairs extended. She states she saw the new ortho physician yesterday and she is getting referred to pain management. Please advise. [facility] 11-23-2023 Telephone encount er Note OK [facility] 11-23-2023 Telephone encount er Note Note faxed to [employer] [facility] 11-01-2023 History of Presen t illness Narrative NAME: Rain Pollard : 1975 HISTORY OF PRESENT ILLNESS: Rain Pollard is an 48 y.o. @ female. DR JAIME REFERRAL. LT HIP PAIN FOR YEARS, CONTINUES GETTING WORSE. TX BY PCP WITH XR'S, FLEXERIL AND GABAPENTIN. XRAY [facility] LT HIP AND LUMBAR 10/27/23 PAIN FROM [...] Antalgic gait IMAGING: I reviewed xray from [facility] of the left hip which showed severe [...] call her bariatric surgeon at [facility] to see if they have orthopedic [...] develop for requiring urgent evaluation. Michaela Ma APRN-[employer] documented in this encounter [facility] 10-31-2023 Miscellaneous Notes Formattin g of this note might be different from the original. ----- Message from Tree Jaime MD sent at 10/28/2023 4:38 PM EST ----- This hip arthritis is likely the cause of her symptoms. Would she like to see ortho? Patient notified and verbalized understanding. She would like to see [facility] ortho. She is wanting to know what she is supposed to do about the pain until she can get into see them. Please advise. Tylenol for pain is about her only option. documented in this encounter [facility] 10-31-2023 Telephone encount er Note ----- Message from Tree Jaime MD sent at 10/28/2023 4:38 PM EST ----- This hip arthritis is likely the cause of her symptoms. Would she like to see ortho? [facility] 10-31-2023 Telephone encount er Note Patient notified and verbalized understanding. She would like to see [facility]. She is wanting to know what she is supposed to do about the pain until she can get into see them. Please advise. [facility] 10-31-2023 Telephone encount er Note Tylenol for pain is about her only option. [facility] 10-26-2023 Miscellaneous Notes Formattin g of this [...] notified. Work note written and faxed to [facility] at [phone] documented in this encounter [facility] 10-26-2023 Telephone encount er Note Patient called stating that the medications she was given last week have not really helped. She is wanting to know what is the next step. Please advise. [facility] 10-26-2023 Telephone encount er Note Maybe she should have an x-ray of her left hip and lumbar spine. [facility] 10-26-2023 Telephone encount er Note Patient notified and is agreeable to getting x rays. Patient didn't go to work today due to barely being able to walk. She thinks tomorrow is going to be worse with work and not able to go then either. She will need a note or possibly FMLA. Please advise. [facility] 10-26-2023 Telephone encount er Note X-rays ordered. Write a note for her to be off work today and tomorrow. [facility] 10-26-2023 Telephone encount er Note Patient notified. Work note written and faxed to [place] [employer] at [phone] [facility] 10-21-2023 History of Presen t illness Narrative [...] times a day. documented in this encounter [facility] 09-29-2022 Evaluation note Encounter Date Diagnosis Assessment Notes Sep, Hypercholesterolemia (ICD-10 - E78.00) Sep, BMI 50.0-59.9, adult (ICD-10 - Z68.43) Sep, Hypertension (ICD-10 - I10) Sep, GERD (gastroesophageal reflux disease) (ICD-10 - K21.9) Sep, Snoring (ICD-10 - R06.83) [employer] [employer] Other 12-29-2022 Evaluation note* Encounter Date Diagnosis [...] patient set personal goal using given handout. [facility] [employer] Other 11-14-2022 Evaluation note* Encounter Date Diagnosis Assessment Notes Treatment Notes Treatment Clinical Notes Jul, Abnormal weight gain (ICD-10 - R63.5) Jul, Hypertension (ICD-10 - I10) Jul, Hypercholesterolemia (ICD-10 - E78.00) Jul, GERD (gastroesophage al reflux disease) (ICD-10 - K21.9) Jul, Snoring (ICD-10 - R06.83) [facility] [employer] Other 11-26-2021 NoteOPERATIVE NOTE OPERATION DATE: 08-21-21 ANESTHETIC:General. DREDGE MATE:None. PREOPERATIVE DIAGNOSIS: Abnormal uterine bleeding. POSTOPERATIVE DIAGNOSIS: [...] uterine endometrial polyp prior to the ablation. [facility] Signed and Approved by: DR RACHEL CANDELARIO . 08/25/2021 23:24:00[facility] noteNo InformationNort [facility] Other Evaluation noteNo assessment information [facility] Work Phone: Evaluation note* Diagnosis Sciatica of left side- Primary [facility] Diagnosis Sciatica of left side- Primary Pain of left hip Pain of left hip [facility] Primary osteoarthritis of left hip- Primary [facility]* Diagnosis Primary osteoarthritis of left hip- Primary Left hip pain Pain in joint, pelvic region and thigh History of bariatric surgery Bariatric surgery status [facility] Diagnosis Primary osteoarthritis of left hip- Primary [facility] Diagnosis Pain of left hip- Primary documented in this encounter [facility] [employer] SystemHistory general Narrative - Reported* Type Description Date Medical History Hypertension Surgical History Rotator Cuff Surgery Surgical History ablasion 2021 Hospitalization History see above [facility]) Other History general Narrative - Reported* Type Description Date Medical History Hypertension Surgical History Rotator Cuff Surgery -2021 Surgical History ablasion of uterus 2020 Surgical History C section x2 Hospitalization History see above [facility] [employer]) Other InstructionsNot on filedocumented in this encounter [facility] SystemInstructionsNot on filedocumented in this encounter [facility] [employer] SystemInstructionsNot on filedocumented in this encounter [facility] [employer] SystemInstructionsNot on filedocumented in this encounter [facility] [employer] SystemInstructionsNot on filedocumented in this encounter [facility] SystemReason for referral (narrative)* Consultation (Routine) - Authorized Specialty Diagnoses / Procedures Referred By Ashley fry Referred To Contact Orthopedic Surgery Diagnoses Primary osteoarthritis of left hip Tree Jaime MD [address], [address] [place] [address] Jeovany Saldivar Jr., DO [address] [facility] [address] [place] [address] Referral ID Status Reason Start Date Expiration Date Visits Requested Visits Authorized [id number] Authorized Specialty Services Required 10/31/2023 10/30/[address] [facility] Summary Purpose Family History No Family History [...] and content) DATE CREATED AUTHOR 11/05/2021 [facility] DATE CREATED AUTHOR AUTHOR'S ORGANIZ ATION 03/29/2023 [facility] DATE CREATED AUTHOR AUTHOR'S ORGANIZ ATION 11/02/2023 [facility] DATE CREATED AUTHOR AUTHOR'S ORGANIZ ATION 04/17/2024 [facility] DATE CREATED AUTHOR AUTHOR'S ORGANIZ ATION 06/05/2024 [facility] DATE CREATED AUTHOR AUTHOR'S ORGANIZ ATION 06/29/2024 [facility] DATE CREATED AUTHOR AUTHOR'S ORGANIZ ATION 07/02/2024 [facility] REASON FOR VISIT (unrecogniz ed section and content) Reason Comments Leg Pain Left leg pain Reason Comments Pain Reason Comments Hip Pain Left, discuss FMLA n eeds Reason Onset Date Comments disability forms 12/27/2023 Goals (unrecognized section and content) Goals may be documented in a n alternate section Care Teams (unrecognized sec tion and content) 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 Specialty Start Date End Date Tree Jaime MD [address] [place], [place] [id number] PCP - General Pediatrics 12/29/20 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 Specialty Start Date End Date rTee Jaime MD [address] [place] [address], [address] [place] [address] PCP - General Pediatrics 12/29/20 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 Specialty Start Date End Date Tree Jaime MD [address] [place] [address], [address] [place] [address] PCP - General Pediatrics 12/29/20 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 Specialty Start Date End Date Tree Jaime MD [address] [place] [address], [address] [place] [address] PCP - General Family Medicine 11/01/23 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 Specialty Start Date End Date Tree Jaime MD [address] [place] [address], [address] [place] [address] PCP - General Pediatrics 12/29/20 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 Specialty Start Date End Date Tree Jaime MD [address] [place] [address], [address] [place] [address] PCP - General Pediatrics 12/29/20 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 Specialty Start Date End Date Tree Jaime MD [address] [place] [address], [address] [place] [address] PCP - General Pediatrics 12/29/20 FOR RECORDS [...] BE BASED ON THE PRIMARY CLINICAL RECORDS. [facility] [facility]. provides no warranty or guarantee of the accuracy or completeness of information in this document.
[2024-07-09 13:42] LABS: Basophils Absolute Auto 0.1 10^3/uL (0.0-0.1); Basophils Percent Auto 0.8 % (0.2-2.0); Eosinophils Absolute Auto 0.1 10^3/uL (0.0-0.7); Eosinophils Percent Auto 1.3 % (0.9-7.0); Hematocrit 41.3 % (36.0-48.0); Hemoglobin 12.5 g/dL (12.0-16.0); Immature Granulocytes Abs Auto 0.02 10^3/uL (0.00-0.03); Immature Granulocytes Pct Auto 0.3 % (0.0-0.5); Lymphocytes Absolute Auto 1.2 10^3/uL (1.2-3.8); Lymphocytes Percent Auto 16.3 % (20.5-60.0); Mean Corpuscular HGB Conc 30.3 g/dL (29.9-35.2); Mean Corpuscular Hemoglobin 26.4 pg (26.7-34.0); Mean Corpuscular Volume 87.3 fL (81.0-99.0); Mean Platelet Volume 11.3 fL (9.5-13.5); Monocytes Absolute Auto 0.6 10^3/uL (0.3-0.8); Monocytes Percent Auto 8.5 % (1.7-12.0); Neutrophils Absolute Auto 5.4 10^3/uL (1.4-6.5); Neutrophils Percent Auto 72.8 % (43.0-75.0); Platelet Count 411 10^3/uL (150-450); Red Blood Count 4.73 10^6/uL (4.20-5.40); Red Cell Distribution Width 13.3 % (11.0-15.0); White Blood Count 7.4 10^3/uL (4.0-11.0)
[2024-07-09 13:51] LABS: Alanine Aminotransferase 27 U/L (14-59); Albumin Globulin Ratio 0.7; Alkaline Phosphatase 107 U/L (46-116); Anion Gap 12.5; Aspartate Amino Transferase 28 U/L (15-37); BUN Creatinine Ratio 24.1; Bilirubin Total 0.2 mg/dL (0.2-1.0); C Reactive Protein <0.50 mg/dL (<=0.50); Calcium 9.2 mg/dL (8.5-10.1); Carbon Dioxide 25.6 mmol/L (21.0-32.0); Chloride 104 mmol/L (98-107); Estimated GFR (African America >60 (>=60 mL/min/1.73m^2); Estimated GFR (Non-African Ame >60 (>=60 mL/min/1.73m^2); Globulin 4.1 g/dL; Glucose 71 mg/dL (74-106); Potassium 4.1 mmol/L (3.5-5.1); Sodium 138 mmol/L (136-145); Total Protein 7.1 g/dL (6.4-8.2)
[2024-07-09 14:31] LABS: Erythrocyte Sedimentation Rate 87 mm/hr (<=30)
== END 2024-07-09 11:31 | disposition home or self-care (01) ==
LOC: LAB 11:30
PROVIDERS: PCP Internal Medicine
DX: T84.52XA Infection and inflammatory reaction due to internal left hip prosthesis, initial encounter (principal)
CPT/HCPCS: 36415; 80053; 85025; 85652; 86140